=== PATIENT | female | born 1965 | race African-American/Black ===

== ENCOUNTER 2022-11-07 00:22 | Emergency (ER) | payer BC, SELFPAY ==
[2022-11-07 00:35] VITALS: BP 130/97; PULSE 82; RESP 16; TEMP 36.4; O2SAT 100; BMI 40.0
[2022-11-07 00:47] LABS: Glucometer 222 mg/dL (74-106)
[2022-11-07 01:30] LABS: Bilirubin Urine NEGATIVE (NEGATIVE); Blood Urine MODERATE (NEGATIVE); Clarity Urine SL CLOUDY (CLEAR); Color Urine YELLOW (YELLOW); Glucose Urine UA NEGATIVE (NEGATIVE); Ketones Urine TRACE mg/dL (NEGATIVE); Leukocyte Esterase Urine SMALL (NEGATIVE); Nitrite Urine NEGATIVE (NEGATIVE); Protein Urine >=300 mg/dL (NEG/TRACE); Specific Gravity Urine >=1.030 (1.005-1.025); Urobilinogen Urine 0.2 EU/dL (0.2-1.0)
[2022-11-07 01:31] LABS: Urine Microscopic Indicated YES
[2022-11-07 01:53] LABS: Bacteria Urine SMALL #/HPF (NONE SEEN); Mucus Urine NONE SEEN (NONE SEEN); RBC Urine 20-50 #/HPF (0-2)
[2022-11-07 01:54] LABS: Calcium Oxalate Crystals Urine FEW; Cast Seen? NONE SEEN #/LPF (NONE SEEN); Crystals Seen? Seen #/HPF (None Seen); Squamous Epithelial Cell Urine MODERATE #/LPF (NONE/RARE)
[2022-11-07 01:55] LABS: Urine Culture Indicated YES
--- NOTE | 2022-11-07 05:55 | ECG_ITS ---
[facility] Test Date: 2022-11-07 Pat Name: Queen Arthur Department: Room: - Gender: Female [employer]ile [employer]ist: : [id number] Requested By: [id number] Order Number: [id number] Reading MD: MILAGROS CALVO Measurements Intervals [place] Rate: 91 P: 49 NC: 144 QRS: 38 QRSD: 76 T: -6 QT: 356 QTc: 404 Interpretive Statements 1100 Sinus rhythm T wave in version III, aVF - possible inf wall ischmia 9130 borderline ECG No previous ECG available for comparison Electronically Signed On 11-07-2022 7:18:14 EDT by MILAGROS CALVO
== END 2022-11-07 06:54 | disposition left against medical advice (07) ==
PROVIDERS: Emergency Provider Internal Medicine; PCP Nurse Practitioner
DX: E11.65 Type 2 diabetes mellitus with hyperglycemia (principal)
CPT/HCPCS: 36415; 81003; 81015; 87086; 93005; 99281; 99284

== ENCOUNTER 2023-04-14 09:31 | Outpatient (OUT) | payer BC, SELFPAY ==
[2023-04-14 10:42] LABS: Estimated Average Glucose 174 mg/dL; Glycohemoglobin A1C 7.7 % (4.5-6.2)
== END 2023-04-14 09:32 | disposition home or self-care (01) ==
LOC: LAB 09:34
PROVIDERS: PCP Family Medicine; Visit Provider Family Medicine
DX: E11.65 Type 2 diabetes mellitus with hyperglycemia (principal)
CPT/HCPCS: 36415; 83036

== ENCOUNTER 2024-03-24 11:10 | Outpatient (OUT) | payer BC, SELFPAY ==
--- OUTSIDE RECORDS SUMMARY | 2024-03-24 11:21 | XMS_ITS | CCD ---
Author Organization [facility] Care Team Providers Care Wine Steward/Stewardess Name Role Phone ROSARIOALEKSEY GILMORE [place] Referring Unavailable PARIS BOYKIN Primary Care Unavailable Damon Og Attending Physician Unavailable Paris Boykin Primary Care Physician Danial Trinidad MD, Shi Primary Care Provider [phone] Shi Trinidad MD Primary Care Provider SOTERO, DR BOO Solorzano Primary Care Unavailable NADEREKishore, DR BOO Solorzano Attending Unavailable NADERER, DR BOO Solorzano Admitting Unavailable ZIEBER, DR LONG Novak Consulting Unavailable NADERER, DR BOO Solorzano Consulting Unavailable NADERER, DR BOO Solorzano Primary Care Unavailable AICHHOLZ, BOOTH OPERATOR MELINDA Admitting Unavailable AICHHOLZ, BOOTH OPERATOR MELINDA Consulting Unavailable AICHHOLZ, BOOTH OPERATOR MELINDA Attending Unavailable BENNIE CHAMBERS Consulting Unavailable NADERER, DR BOO Solorzano Consulting Unavailable NADERER, DR BOO Solorzano Attending Unavailable NADERER, DR BOO Solorzano Admitting Unavailable LUCIO SOMERS Consulting Unavailable NORIS MEDINA Consulting Unavailable Melinda Gann PA-C Primary Care Provider Shi Trinidad MD Primary Care Provider Boo Bey MD Primary Care Provider Unavailable Unavailable Unavailable Medications Current Medications Medication Drug Class(es) Dates Sig (Normalized) Sig (Original) atorvastatin 40 mg oral tablet (5 sources) HMG-CoA Reductase Inhibitor take 1 tablet by mouth in the morning atorvastatin (Lipitor) 40 MG tablet Take 40 mg by mouth in the morning. Active Blood Glucose Monitoring Suppl (True Metrix Air Glucose Meter) w/Device kit (5 sources) Blood Glucose Monitoring Suppl (True Metrix Air Glucose Meter) w/Device kit Active Blood Glucose Mo nitoring Suppl (True Metrix Air Glucose Meter) w/Device kit celecoxib 200 mg oral capsule (5 sources) Nonsteroidal Anti-inflammatory Drug take 1 capsule by mouth in the morning celecoxib (CeleBREX) 200 MG capsule Take 200 mg by mouth in the morning and 200 mg before bedtime. Active lisinopril 30 mg oral tablet (5 sources) Angiotensin Converting Enzyme Inhibitor Start: 10-14-19 End: 10-14-19 take 1 tablet by mouth once daily lisinopril 30 MG tablet Indications: Benign hypertension (CMS/HCC) Take 1 tablet (30 mg) by mouth Daily 30 tablet 11 10/14/2023 10/13/2024 Active take 1 tablet by mouth in the mo rning lisinopril 30 MG tablet Take 30 mg by mouth in the morning. 0 Active 24 hr metFORMIN hydrochloride 500 mg extended release oral tablet (7 sources) Biguanide Start: 03-02-2024 take 1 tablet by mouth once daily metFORMIN XR (Glucophage-XR) 500 MG 24 hr tablet Take 500 mg by mouth Daily 03/02/2024 Active Start: 10-14-2023 End: 10-13-2024 take 1 tablet by mouth at mealtime metFORMIN (Glucophage) 500 MG tablet Indications: Type 2 diabetes mellitus with hyperglycemia, without long-term current use of insulin (CMS/HCC) Take 1 tablet (500 mg) by mouth in the morning. Take with meals. 30 tablet 11 10/14/2023 03/21/2024 Discontinued take 1 tablet by hilaria th once daily metFORMIN (Glucophage) 500 MG tablet Take 500 mg by mouth 1 (one) time each day 0 Active ondansetron 4 mg disintegrating oral tablet (5 sources) Serotonin-3 Receptor Antagonist Start: 05-17-2023 take 1 tablet by mouth every six hours as needed for nausea and vomiting and nausea and nausea ondansetron ODT (Zofran-ODT) 4 MG disintegrating tablet Indications: Nausea Take 1 tablet (4 mg) by mouth every 6 (six) hours if needed for nausea or vomiting 20 tablet 1 05/17/2023 Active 1 mg dose 1.5 ml semaglutide 1.34 mg/ml pen injector (2 sources) Start: 03-21-2024 inject 1 mg by subcutaneous injection every week semaglutide (Ozempic) 2 MG/1.5ML solution pen-injector Indications: Type 2 diabetes mellitus with hyperglycemia, without long-term current use of insulin (CMS/[facility]) Inject 1 mg under the skin 1 (one) time per week 2 each 5 03/21/2024 Active traMADol hydrochloride 50 mg oral tablet (6 sources) Opioid Agonist Start: 03-15-2024 End: 03-22-2024 take 1 tablet by mouth four times daily as needed for pain traMADol (Ultram) 50 MG tablet Indications: Chronic pain of right ankle Take 1 tablet (50 mg) by mouth 4 (four) times a day as needed for severe pain for up to 7 days 28 tablet 03/15/2024 03/22/2024 Active Start: 07-07-2023 End: 07-14-2023 take 1 tablet by mouth four times daily as needed for pain traMADol (Ultram) 50 MG tablet Indications: Arthritis of ankle Take 1 tablet (50 mg) by mouth 4 (four) times a day as needed for severe pain for up to 7 days 28 tablet 0 07/07/2023 07/14/2023 Active Start: 01-11-2023 End: 07-07-2023 take 1 tablet by mouth every six hours as needed for pain traMADol (Ultram) 50 MG tablet Take 50 mg by mouth every 6 (six) hours if needed for severe pain 0 01/11/2023 07/07/2023 Discontinued (Reorder) Completed/Discontinued Medications Medication Drug Class(es) Dates Sig (Normalized) Sig (Original) glipiZIDE er 10 mg 24 hr extended release oral tablet (7 sources) Sulfonylurea Start: 10-14-2023 End: 10-13-2024 take 1 tablet by mouth once daily glipiZIDE XL (Glucotrol XL) 10 MG 24 hr tablet Indications: Type 2 diabetes mellitus with hyperglycemia, without long-term current use of insulin (CMS/[facility]) Take 1 tablet (10 mg) by mouth Daily Do not crush, chew, or split. 30 tablet 11 10/14/2023 03/21/2024 Discontinued Start: 05-11-2023 take 1 tablet by hilaria th once daily glipiZIDE (Glucotrol) 10 MG tablet Take 10 mg by mouth Daily 05/11/2023 Active take 1 tablet by hilaria th every twenty-four hours in the morning glipiZIDE XL (Glucotrol XL) 10 MG 24 hr tablet Take 10 mg by mouth in the morning. Do not crush, chew, or split.. 0 Active hydroCHLOROthiazide 25 mg oral tablet (3 sources) Thiazide Diuretic Start: 12-11-2020 take 1 tablet by mouth once daily hydroCHLOROthiazide (HYDRODIURIL, ESIDRIX) 25 mg tablet Take 1 tablet by mouth once daily. 30 tablet 11 12/11/2020 Active Comment on above: Take 1 tablet by once daily. Semaglutide,0.25 or 0.5MG/DOS, (Ozempic, 0.25 or 0.5 MG/DOSE,) 2 MG/3ML solution pen-injector (5 sources) Start: 10-14-2023 End: 03-21-2024 Semaglutide,0.25 or 0.5MG/DOS, (Ozempic, 0.25 or 0.5 MG/DOSE,) 2 MG/3ML solution pen-injector Indications: Type 2 diabetes mellitus with hyperglycemia, without long-term current use of insulin (CMS/HCC) Inject 0.5 mg under the skin 1 (one) time per week 3 mL 5 10/14/2023 03/21/2024 Discontinued Start: 10-14-2023 Semaglutide,0. 25 or 0.5MG/DOS, (Ozempic, 0.25 or 0.5 MG/DOSE,) 2 MG/3ML solution pen-injector Indications: Type 2 diabetes mellitus with hyperglycemia, without long-term current use of insulin (CMS/HCC) Inject 0.5 mg under the skin 1 (one) time per week 3 mL 5 10/14/2023 Active Semaglutide,0.25 or 0.5MG/DOS, (Ozempic, 0.25 or 0.5 MG/DOSE,) 2 MG/3ML solution pen-injector Inject under the skin 1 (one) time per week 0 Active Surgical Lubricant Jelly gel (3 sources) Start: 02-18-2021 Surgical Lubri cant Jelly gel For MRI Female Pelvis, MRI department to provide. Administer intra-vaginal Surgilube immediately prior the MRI procedure (total amount to patient toleranace). 5 g 0 02/18/2021 Active Comment on above: For MRI Female Pelvi s, MRI department to provide. Administer intra-vaginal Surgilube immediately prior the MRI procedure (total amount to patient toleranace). Problems Active Problems Problem Classification Problem Date Documented Da te Episodic/Chronic Diabetes mellitus with complications (8 sources) Hyperglycemia due to type 2 diabetes mellitus; Translations: [Type 2 diabetes mellitus with hyperglycemia] Onset: 03-15-2024 03-15-2024 Chronic Disorders of lipid metabolism (6 sources) Dyslipidemia; Translations: [Hyperlipidemia, unspecified] Onset: 03-15-2024 03-15-2024 Chronic Essential hypertension (12 sources) Essential hypertension; Translations: [Essential (primary) hypertension] Onset: 12-12-2019 12-12-2019 Chronic Joint disorders and dislocations; trauma-related (1 source) Unspecified internal derangement of left knee; Translations: [Unspecified internal derangement of left knee] Onset: 09-16-2018 Chronic Nonspecific chest pain (4 sources) Chest pain, unspecified; Translations: [CHEST PAIN UNSPECIFIED] Onset: 10-20-2022 Episodic Osteoarthritis (6 sources) Bilateral primary osteoarthritis of knee; Translations: [Disorder of ankle joint] Onset: 10-17-2022 07-07-2023 Chronic Other gastrointestinal disorders (1 source) Mass of left lower quadrant of abdomen; Translations: [Left lower quadrant abdominal swelling, mass and lump] 12-06-2020 Episodic Other liver diseases (3 sources) Steatosis of liver; Translations: [Fatty (change of) liver, not elsewhere classified] Onset: 12-11-2020 12-11-2020 Chronic Other non-traumatic joint disorders (1 source) Pain in left knee; Translations: [Pain in left knee] Onset: 09-16-2018 Episodic Other non-traumatic joint disorders (1 source) Pain in right ankle and joints of right foot; Translations: [PAIN IN RIGHT ANKLE] Onset: 10-17-2022 Episodic Other non-traumatic joint disorders (1 source) Hip pain; Translations: [Pain in left hip] 11-12-2020 Episodic Other non-traumatic joint disorders (7 sources) Chronic ankle pain; Translations: [Pain in right ankle and joints of right foot] Onset: 03-15-2024 03-15-2024 Episodic Other nutritional; endocrine; and metabolic disorders (2 sources) Morbid obesity; Translations: [Morbid (severe) obesity due to excess calories] Onset: 03-15-2024 03-15-2024 Chronic Other nutritional; endocrine; and metabolic disorders (4 sources) Severe obesity; Translations: [Class 3 severe obesity due to excess calories with serious comorbidity and body mass index (BMI) of 40.0 to 44.9 in adult ([facility])] Onset: 03-15-2024 03-21-2024 Chronic Other screening for suspected conditions (not mental disorders or infectious disease) (14 sources) Patient encounter status; Translations: [Encounter for screening for malignant neoplasm of colon] Onset: 03-11-2018 01-09-2021 Episodic Peripheral and visceral atherosclerosis (3 sources) Atherosclerosis of artery ; Translations: [Unspecified atherosclerosis] Onset: 12-11-2020 12-11-2020 Chronic Residual codes; unclassified (1 source) Family history of malignant neoplasm of breast; Translations: [FAMILY HX MALIG NEOPLASM OF BREAST] Onset: 10-22-2022 Episodic Residual codes; unclassified (1 source) Family history of malignant neoplasm of other organs or systems; Translations: [FAM HX MALIG NEOPLASM OTH ORGN/SYS] Onset: 10-22-2022 Episodic Sprains and strains (1 source) Sprain of unspecified site of left knee, sequela; Translations: [Sprain of unspecified site of left knee, sequela] Onset: 09-16-2018 Episodic Past or Other Problems Problem Classification Problem Date Documented Da te Episodic/Chronic Other and unspecified benign neoplasm (3 sources) Leiomyoma; Translations: [Benign neoplasm of connective and other soft tissue, unspecified] Onset: 12-11-2020 12-11-2020 Episodic Other gastrointestinal disorders (3 sources) Stool DNA-based colorectal cancer screening positive; Translations: [Other fecal abnormalities] Onset: 01-09-2021 01-09-2021 Episodic Results Test Name Value Interpretation Reference Range Facility MG MAMM SCREEN 3D KADIE CADon 10-21-2022 MG MAMM SCREEN 3D KADIE CAD Patient: QUEEN Magdalena GIBSON Exam Date: 10/21/2022 : 1965 Gender:F Ordering : DR BOO BEY . Admission #: [id number] Family : Order #: [id number] CLICK HERE TO VIEW EXAM RADIOLOGY REPORT PROCEDURE: MAMMOGRAM SCREENING 3D BILATERAL CAD COMPARISON: MG MAMM SCREEN KADIE W CAD, 06/19/2010. INDICATIONS: Screening mammography Calculator Name NCI Breast Cancer Risk Assessment Tool 5 Year Breast Cancer Risk 1.40% Lifetime Breast Cancer Risk 7.80% Personal Breast Cancer No Personal Ovarian Cancer No Treatments None Family Cancers Grandmother-paternal with breast cancer at age 60; Father with brain cancer at age 55. LOCATION: [facility] BREAST COMPOSITION: Heterogeneously dense,which may obscure small masses. FINDINGS: DIAGNOSTIC CATEGORY 1--NEGATIVE. RIGHT BREAST: No significant suspicious finding. No significant change has occurred. LEFT BREAST: No significant suspicious finding. No significant change has occurred. RECOMMENDATIONS: ROUTINE MAMMOGRAM AND CLINICAL EVALUATION IN 12 MONTHS. PLEASE NOTE: A NORMAL MAMMOGRAM DOES NOT EXCLUDE THE POSSIBILITY OF BREAST CANCER. A CLINICALLY SUSPICIOUS PALPABLE LUMP SHOULD BE BIOPSIED. Dictated by: Long Ge M.D. on 10/21/2022 at 15:04 Approved by: Long Ge M.D. on 10/21/2022 at 15:06 Normal [facility] XR CHEST 2 Von 10-20-2022 XR CHEST 2 V EXAM: XR CHEST 2 V HISTORY: Chest pain COMPARISON: None. TECHNIQUE: PA and lateral views of the chest. FINDINGS: The cardiomediastinal silhouette is normal. No focal consolidation is identified. There is no pneumothorax. No pleural effusion is noted. The osseous structures are intact. IMPRESSION: No acute cardiopulmonary process. Electronically authenticated by: BENNIE CHAMBERS Date: 2022-10-20 11:06 Normal [facility] XR KNEE KADIE 3 Von 10-15-2022 XR KNEE KADIE 3 V EXAM: XR KNEE KADIE 3 V HISTORY: Idiopathic osteoarthritis COMPARISON: None. TECHNIQUE: Two views of the right knee and 2 views of the left knee were obtained. FINDINGS: There is severe narrowing of the bilateral medial compartments. Marginal tricompartmental spurring is seen along with spurring of the tibial spines. There is bilateral small joint effusions. Enthesopathic changes are seen at the insertion of the quadriceps tendon bilaterally. IMPRESSION: Severe bilateral knee joint osteoarthritis. Enthesopathic changes at the insertion of the quadriceps tendon. Electronically authenticated by: LUCIO SOMERS Date: 2022-10-15 21:16 Normal [facility] CBC AUTO DIFFon 10-14-2022 BASO # 0.1 103/ul Normal 0.0-0.1 [facility] Comment on above: Performed By: #### C BC #### [facility] [address] [place] [address] Dr. Marguerite Lynn Basophils/100 WBC (Bld) 1.1 % Normal 0.2-2.0 [facility] Comment on above: Performed By: #### C BC #### [facility] [address] [place] [address] Dr. Marguerite Lynn EO # 0.1 103/ul Normal 0.0-0.7 [facility] Comment on above: Performed By: #### C BC #### [facility] [address] [place] [address] Dr. Marguerite Lynn Eosinophils/100 WBC (Bld) 2.2 % Normal 0.9-7.0 [facility] Comment on above: Performed By: #### C BC #### [facility] [address] [place] [address] Dr. Marguerite Lynn Erythrocyte distribution width (RBC) [Ratio] 14.6 % Normal 11.0-15.0 [facility] Comment on above: Performed By: #### C BC #### [facility] [address] [place] [address] Dr. Marguerite Lynn Hematocrit (Bld) [Volume fraction] 39.8 % Normal 36.0-48.0 [facility] Comment on above: Performed By: #### C BC #### [facility] [address] [place] [address] Dr. Marguerite Lynn Hemoglobin (Bld) [Mass/Vol] 12.5 g/dL Normal 12.0-16.0 [facility] Comment on above: Performed By: #### C BC #### [facility] [address] [place] [address] Dr. Marguerite Lynn IG # 0.02 10e3/ul Normal 0.00-0.03 [facility] Comment on above: Performed By: #### C BC #### [facility] [address] [place] [address] Dr. Marguerite yLnn IG % 0.4 % Normal 0.0-0.5 [facility] Comment on above: Performed By: #### C BC #### [facility] [address] [place] [address] Dr. Marguerite Lynn LYMPH # 1.8 103/ul Normal 1.2-3.8 [facility] Comment on above: Performed By: #### C BC #### [facility] [address] [place] [address] Dr. Marguerite Lynn Lymphocytes/100 WBC (Bld) 33.5 % Normal 20.5-60.0 [facility] Comment on above: Performed By: #### C BC #### [facility] [address] [place] [address] Dr. Marguerite Lynn MANUAL DIFF REQ NO Normal [facility] Comment on above: Performed By: #### C BC #### [facility] [address] [place] [address] Dr. Marguerite Lynn MCH (RBC) [Entitic mass] 28.3 pg Normal 26.7-34.0 [facility] Comment on above: Performed By: #### C BC #### [facility] [address] [place] [address] Dr. Marguerite Lynn MCHC (RBC) [Mass/Vol] 31.4 g/dL Normal 29.9-35.2 [facility] Comment on above: Performed By: #### C BC #### [facility] [address] [place] [address] Dr. Marguerite Lynn MCV (RBC) [Entitic vol] 90.2 fL Normal 81.0-99.0 [facility] Comment on above: Performed By: #### C BC #### [facility] [address] [place] [address] Dr. Marguerite Lynn MONO # 0.5 103/ul Normal 0.3-0.8 [facility] Comment on above: Performed By: #### C BC #### [facility] [address] [place] [address] Dr. Marguerite Lynn Monocytes/100 WBC (Bld) 8.3 % Normal 1.7-12.0 [facility] Comment on above: Performed By: #### C BC #### [facility] [address] [address] [address] Marguerite Lynn NEUT # 2.9 103/ul Normal 1.4-6.5 [facility] Comment on above: Performed By: #### C BC #### [facility] [address] [address] [address] Marguerite Lynn Neutrophils/100 WBC (Bld) 54.5 % Normal 43.0-75.0 [facility] Comment on above: Performed By: #### C BC #### [facility] [address] [address] [address] Marguerite Lynn Platelet mean volume (Bld) [Entitic vol] 10.8 fL Normal 9.5-13.5 [facility] Comment on above: Performed By: #### C BC #### [facility] [address] [place] [address] Dr. Marguerite Lynn PLT 247 103/ul Normal 150-450 [facility] Comment on above: Performed By: #### C BC #### [facility] [address] [place] [address] Dr. Marguerite Lynn RBC 4.41 106/ul Normal 4.20-5.40 [facility] Comment on above: Performed By: #### C BC #### [facility] [address] [place] [address] Dr. Marguerite Lynn WBC 5.4 103/ul Normal 4.0-11.0 [facility] Comment on above: Performed By: #### C BC #### [facility] [address] [place] [address] Dr. Marguerite Lynn GLYCOHEMOGLOBIN A1Con 2022 ADA RECOMMENDATION SEE BELOW Normal [facility] Comment on above: Result Comment: ADA RECOMMENDED LIMIT 4.0 - 6.0 ADA THERAPEUTIC TARGET < 7.0 ACTION SUGGESTED > 7.0 Performed By: #### A 1C #### [facility] [address] [place] [address] Dr. Marguerite Lynn Glucose [Mass/Vol] 298 mg/dL Normal [facility] Comment on above: Performed By: #### A 1C #### [facility] [address] [address] [address] Marguerite Lynn HbA1c (Bld) [Mass fraction] 12.0 % Critically high 4.5-6.2 [facility] Comment on above: Performed By: #### A 1C #### [facility] [address] [address] [address] Marguerite Lynn LIPID PROFILEon 10-14-2022 CHOL-HDL RATIO NORM SEE BELOW Normal [facility] Comment on above: Result Comment: 3.3 - 4.4 LOW RISK 4.4 - 7.1 AVERAGE RISK 7.1 - 11.0 MODERATE RISK >11.0 HIGH RISK Performed By: #### B MP, TSH, LIPID, URIC, LIVER #### [facility] [address] [address] [address] Marguerite Lynn Cholesterol [Mass/Vol] 282 mg/dL Critically high <=200 [facility] Comment on above: Performed By: #### B MP, TSH, LIPID, URIC, LIVER #### [facility] [address] [address] [address] Marguerite Lynn Cholesterol in HDL [Mass/Vol] 62 mg/dL Critically high 40-60 [facility] Comment on above: Performed By: #### B MP, TSH, LIPID, URIC, LIVER #### [facility] [address] [address] [address] Marguerite Lynn Cholesterol in LDL [Mass/Vol] 182.0 mg/dL Normal [facility] Comment on above: Performed By: #### B MP, TSH, LIPID, URIC, LIVER #### [facility] [address] [address] [address] Marguerite Lynn Cholesterol.total/C holesterol in HDL [Mass ratio] 4.5 {ratio} Normal [facility] Comment on above: Performed By: #### B MP, TSH, LIPID, URIC, LIVER #### [facility] [address] [address] [address] Marguerite Lynn HDL NORMAL > or = 60 mg/dl - LO W CARDIOVASCULAR RISK <40 mg/dl - HIGH CARDIOVASCULAR RISK Normal [facility] Comment on above: Performed By: #### B MP, TSH, LIPID, URIC, LIVER #### [facility] [address] [place] [address] Dr. Marguerite Lynn LDL CALC NORMAL SEE BELOW Normal [facility] Comment on above: Result Comment: <100 mg/dl OPTIMAL 100 - 129 mg/dl NEAR OR ABOVE OPTIMAL 130 - 159 mg/dl BORDERLINE HIGH 160 - 189 mg/dl HIGH >190 mg/dl VERY HIGH Performed By: #### B MP, TSH, LIPID, URIC, LIVER #### [facility] [address] [address] [address] Marguerite Lynn Triglyceride [Mass/Vol] 190 mg/dL Critically high <=150 [facility] Comment on above: Performed By: #### B MP, TSH, LIPID, URIC, LIVER #### [facility] [address] [place] [address] Dr. Marguerite Lynn VLDL CALC 38.0 mg/dL Normal [facility] Comment on above: Performed By: #### B MP, TSH, LIPID, URIC, LIVER #### [facility] [address] [place] [address] Dr. Marguerite Lynn LIVER PROFILEon 10-14-2022 Albumin [Mass/Vol] 3.6 g/dL Normal 3.4-5.0 [facility] Comment on above: Performed By: #### B MP, TSH, LIPID, URIC, LIVER #### [facility] [address] [place] [address] Dr. Marguerite Lynn Albumin/Globulin [Mass ratio] 0.8 {ratio} Normal [facility] Comment on above: Performed By: #### B MP, TSH, LIPID, URIC, LIVER #### [facility] [address] [place] [address] Dr. Marguerite Lynn ALP [Catalytic activity/Vol] 215 U/L Critically high 46-116 [facility] Comment on above: Performed By: #### B MP, TSH, LIPID, URIC, LIVER #### [facility] [address] [place] [address] Dr. Marguerite Lynn ALT [Catalytic activity/Vol] 23 U/L Normal 14-59 [facility] Comment on above: Performed By: #### B MP, TSH, LIPID, URIC, LIVER #### [facility] [address] [place] [address] Dr. Marguerite Lynn AST [Catalytic activity/Vol] 10 U/L Critically low 15-37 [facility] Comment on above: Performed By: #### B MP, TSH, LIPID, URIC, LIVER #### [facility] [address] [place] [address] Dr. Marguerite Lynn BILI, CONJUGATED <0.1 Normal 0.0-0.2 [facility] Comment on above: Performed By: #### B MP, TSH, LIPID, URIC, LIVER #### [facility] [address] [place] [address] Dr. Marguerite Lynn Bilirubin [Mass/Vol] 0.2 mg/dL Normal 0.2-1.0 [facility] Comment on above: Performed By: #### B MP, TSH, LIPID, URIC, LIVER #### [facility] [address] [place] [address] Dr. Marguerite Lynn Globulin (S) [Mass/Vol] 4.3 g/dL Normal [facility] Comment on above: Performed By: #### B MP, TSH, LIPID, URIC, LIVER #### [facility] [address] [place] [address] Dr. Marguerite Lynn Protein [Mass/Vol] 7.9 g/dL Normal 6.4-8.2 [facility] Comment on above: Performed By: #### B MP, TSH, LIPID, URIC, LIVER #### [facility] [address] [place] [address] Dr. Marguerite Lynn PROF CHEM 8 (BAS METB)on Anion gap [Moles/Vol] 12.8 mmol/L Normal [facility] Comment on above: Performed By: #### B MP, TSH, LIPID, URIC, LIVER #### [facility] [address] [place] [address] Dr. Marguerite Lynn Calcium [Mass/Vol] 9.2 mg/dL Normal 8.5-10.1 [facility] Comment on above: Performed By: #### B MP, TSH, LIPID, URIC, LIVER #### [facility] [address] [place] [address] Dr. Marguerite Lynn Chloride [Moles/Vol] 102 mmol/L Normal 98-107 [facility] Comment on above: Performed By: #### B MP, TSH, LIPID, URIC, LIVER #### [facility] [address] [place] [address] Dr. Marguerite Lynn CO2 [Moles/Vol] 30.2 mmol/L Normal 21.0-32.0 [facility] Comment on above: Performed By: #### B MP, TSH, LIPID, URIC, LIVER #### [facility] [address] [place] [address] Dr. Marguerite Lynn Creatinine [Mass/Vol] 1.00 mg/dL Normal 0.55-1.02 [facility] Comment on above: Performed By: #### B MP, TSH, LIPID, URIC, LIVER #### [facility] [address] [place] [address] Dr. Marguerite Lynn EGFR-AF GABONESE >60 Normal >=60 [facility] Comment on above: Performed By: #### B MP, TSH, LIPID, URIC, LIVER #### [facility] [address] [place] [address] Dr. Marguerite Lynn EGFR-NON AF GABONESE 58 mL/min/1.73m2 Critically low >=60 [facility] Comment on above: Performed By: #### B MP, TSH, LIPID, URIC, LIVER #### [facility] [address] [place] [address] Dr. Marguerite Lynn Glucose [Mass/Vol] 330 mg/dL Critically high 74-[address] [facility] Comment on above: Performed By: #### B MP, TSH, LIPID, URIC, LIVER #### [facility] [address] [place] [address] Dr. Marguerite Lynn Potassium [Moles/Vol] 4.0 mmol/L Normal 3.5-5.1 [facility] Comment on above: Performed By: #### B MP, TSH, LIPID, URIC, LIVER #### [facility] [address] [place] [address] Dr. Marguerite Lynn Sodium [Moles/Vol] 141 mmol/L Normal 136-145 [facility] Comment on above: Performed By: #### B MP, TSH, LIPID, URIC, LIVER #### [facility] [address] [place] [address] Dr. Marguerite Lynn Urea nitrogen [Mass/Vol] 14.0 mg/dL Normal 7.0-18.0 [facility] Comment on above: Performed By: #### B MP, TSH, LIPID, URIC, LIVER #### [facility] [address] [place] [address] Dr. Marguerite Lynn Urea nitrogen/Creatinine [Mass ratio] 14.0 mg/mg Normal [facility] Comment on above: Performed By: #### B MP, TSH, LIPID, URIC, LIVER #### [facility] [address] [place] [address] Dr. Marguerite Lynn TSHon 10-14-2022 TSH 1.140 uIU/mL Normal 0.358-3.740 [facility]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 [facility] Erythrocyte distribution width (RBC) [Ratio] 14.9 % 11.9-15.3 [facility] Estimated GFR (Non- > 60 [facility] GFR/1.73 sq M.predicted MDRD (S/P/Bld) [Vol rate/Area] mL/min/{1.73_m2} [facility] Comment on above: GFR estimated refere nce range: According to KDOQI guidelines, <60 ml/min/1.73m2 is sufficient to diagnose a patient with chronic kidney disease. Hematocrit (Bld) [Volume fraction] 39.1 % 34.0-46.4 [facility] Hemoglobin (Bld) [Mass/Vol] 13.1 g/dL 11.8-15.4 [facility] Lymphocytes (Bld) [#/Vol] 2.1 10*3/uL 1.00-4.8 [facility] Lymphocytes/100 WBC (Bld) 36.0 % [facility] MCH (RBC) [Entitic mass] 29.5 pg 24.7-34.3 [facility] MCHC (RBC) [Mass/Vol] 33.5 g/dL 32.0-35.0 [facility] MCV (RBC) [Entitic vol] 88.1 fL 80-100 [facility] Monocytes (Bld) [#/Vol] 0.6 10*3/uL 0.0-0.8 [facility] Monocytes/100 WBC (Bld) 10.0 % [facility] Neutrophils (Bld) [#/Vol] 3.0 10*3/uL 1.8-7.7 [facility] Neutrophils/100 WBC (Bld) 51.8 % [facility] Platelet mean volume (Bld) [Entitic vol] 8.8 fL 6.3-10.7 [facility] Platelets (Bld) [#/Vol] 240 10*3/uL 150-450 [facility] Potassium [Moles/Vol] 3.9 mmol/L 3.5-5.1 [facility] RBC (Bld) [#/Vol] 4.43 10*6/uL 3.60-5.00 [facility] Sodium [Moles/Vol] 138 mmol/L 136-146 [facility] Urea nitrogen [Mass/Vol] 10 mg/dL 9-23 [facility] WBC (Bld) [#/Vol] 5.7 10*3/uL 3.8-11.6 [facility] Vital Signs Date Time Vital Sign Value Performing Clinician Facility 03-21-2024 13:56-0400 Body height 162.6 cm Boo Bey MD Work Phone: [facility] 03-21-2024 13:56-0400 Body mass index (BMI) [Ratio] 40.1 kg/m2 Boo Bey MD Work Phone: [facility] 03-21-2024 13:56-0400 Body temperature 97.3 [degF] Boo Bey MD Work Phone: [facility] 03-21-2024 13:56-0400 Body weight 105.96 kg Boo Bey MD Work Phone: [facility] 03-21-2024 13:56-0400 Diastolic blood pressure 100 mm[Hg] Boo Bey MD Work Phone: [facility] 03-21-2024 13:56-0400 Heart rate 100 /min Boo Bey MD Work Phone: [facility] 03-21-2024 13:56-0400 SaO2% (BldA) [Mass fraction] 100 % Boo Bey MD Work Phone: [facility] 03-21-2024 13:56-0400 Systolic blood pressure 160 mm[Hg] Boo Bey MD Work Phone: [facility] NEGATED: Highlighted row BMI (Body Mass Index) [facility] NEGATED: Highlighted row Body Temperature [facility] NEGATED: Highlighted row Body weight [facility] NEGATED: Highlighted row BP Diastolic [facility] NEGATED: Highlighted row BP Systolic [facility] NEGATED: Highlighted row Height [facility] NEGATED: Highlighted row Pulse (Heart Rate) [facility] NEGATED: Highlighted row Pulse Oximetry [facility] NEGATED: Highlighted row Respiratory Rate [facility] Encounters Encounter Date Encounter Type Care Provider Facility Start: 03-21-2024 End: 03-21-2024 Bambo flowsheet Boo Bey MD Work Phone: [facility] Start: 03-21-2024 End: 03-21-2024 [facility] flowsheet Boo Bey MD Work Phone: [facility] Start: 03-21-2024 End: 03-21-2024 Office outpatient visit 25 minutes Boo Bey MD Work Phone: [facility] Comment on above: Type 2 diabetes rafaela itus with hyperglycemia, without long-term current use of insulin ([facility]) (Primary Dx); Hypertension, essential (CMS/[facility]); Bilateral primary osteoarthritis of knee; Chronic pain of right ankle; Dyslipidemia (CMS/HCC); Class 3 severe obesity due to excess calories with serious comorbidity and body mass index (BMI) of 40.0 to 44.9 in adult (CMS/HCC); Breast cancer screening by mammogram; Annual physical exam; Type 2 diabetes mellitus with other specified complication ([facility]/HCC) Start: 03-21-2024 End: 03-21-2024 Patient encounter procedure Boo Bey MD Work Phone: [facility] Start: 03-15-2024 End: 03-15-2024 Orders Only Boo Bey MD Work Phone: [facility] Comment on above: Chronic pain of righ t ankle (Primary Dx) Start: 07-07-2023 Refill Boo Whitmore Work Phone: [facility] Comment on above: Arthritis of ankle ( Primary Dx) Start: 02-10-2023 ambulatory Shi Trinidad MD Work Phone: [facility] [place] Start: 10-21-2022 End: 10-22-[address] BOO BEY Facility:[facility] Start: 10-20-2022 End: 10-21-[address] BOO BEY Facility:[facility] Start: 10-17-2022 Encounter for genera l adult medical examination without abnormal findings DR BOO BEY [facility] Start: 10-14-2022 End: 10-15-[address] BOO BEY Facility:[facility] Start: 10-14-2022 End: 10-15-2022 Encounter for general adult medical examination without abnormal findings DR BOO BEY Facility:[facility] Start: 03-04-2022 ambulatory Shi Trinidad MD Work Phone: Internal Medicine [facility] Start: 01-08-2022 Telephone encounter Shi Mcclain i, MD Work Phone: [facility] [place] Comment on above: ER F/U Start: 12-06-2020 End: 12-06-2020 Subsequent hospital visit by physician Ct Prep Pending Sale To [facility] Comment on above: Left lower quadrant abdominal mass [R19.04] Start: 11-12-2020 End: 11-12-2020 Subsequent hospital visit by physician Xr Pending Sale To [facility] Comment on above: Left hip pain [M25.5 52] Start: 12-21-2018 End: 12-21-2018 Discharged Recurring [facility] Start: 09-16-2018 End: 09-19-2018 [facility] Start: 08-30-2017 End: 08-30-2017 Departed Referred [facility] Start: 10-21-2016 End: 10-22-2016 Discharged Recurring [facility] Start: 09-24-2016 End: 09-24-2016 [facility] Start: 09-17-2016 End: 09-17-2016 Patient encounter procedure [facility] Start: 04-20-2014 End: 04-20-2014 Patient encounter procedure [facility] Start: 09-27-2013 End: 09-27-2013 Patient encounter procedure [facility] Start: 09-20-2013 End: 09-20-2013 Patient encounter procedure [facility] Start: 01-23-2013 End: 01-23-2013 Patient encounter procedure [facility] Start: 01-17-2013 End: 01-17-2013 Patient encounter procedure Damon [facility] Start: 10-09-2011 End: 10-09-2011 Patient encounter procedure [facility] Start: 11-20-2010 End: 11-20-2010 Patient encounter procedure [facility] Start: 06-19-2010 End: 06-19-2010 Patient encounter procedure [facility] Start: 08-15-2007 End: 08-15-2007 Patient encounter procedure [facility] Start: 07-02-2006 End: 07-02-2006 Patient encounter procedure [facility] Start: 08-03-2005 End: 08-03-2005 Patient encounter procedure [facility] Start: 12-26-2004 End: 12-26-2004 Patient encounter procedure [facility] Start: 08-01-2004 End: 08-01-2004 Patient encounter procedure Damon Og [facility] Start: 07-16-2004 End: 07-16-2004 Patient encounter procedure Damon Og [facility] Start: 02-03-2003 End: 02-03-2003 Patient encounter procedure Damon Og [facility] Start: 01-20-2003 End: 01-28-2003 Discharged Recurring Damon Og [facility] Start: 08-09-2002 End: 08-09-2002 Patient encounter procedure Damon Og [facility] Start: 07-05-2001 End: 07-05-2001 Admission to day surgery Damon Og [facility] Start: 06-10-2001 End: 06-10-2001 Patient encounter procedure Damon Og [facility] Start: 10-06-2000 End: 10-06-2000 Emergency department patient visit Damon Og [facility] Start: 01-09-2000 End: 01-09-2000 Emergency department patient visit Damon Og [facility] Start: 01-08-2000 End: 01-29-2000 Discharged Recurring Damon Og [facility] Start: 09-19-1999 End: 09-19-1999 Emergency department patient visit Damon Og [facility] Start: 09-19-1999 End: 09-28-1999 Discharged Recurring Damon Og [facility] Start: 06-25-1993 End: 06-25-1993 Emergency department patient visit Damon Og [facility] Start: 10-23-1992 End: 10-23-1992 Emergency department patient visit Damon Og [facility] Start: 08-09-1992 End: 08-09-1992 Emergency department patient visit Damon Og [facility] Start: 07-26-1992 End: 07-26-1992 Emergency department patient visit [facility] Start: 06-23-1991 End: 06-23-1991 Emergency department patient visit [facility] Start: 06-17-1991 End: 06-17-1991 Emergency department patient visit [facility] Start: 06-07-1991 End: 06-07-1991 Emergency department patient visit [facility] Start: 03-16-1991 End: 03-16-1991 Emergency department patient visit [facility] Start: 01-22-1988 End: 01-22-1988 Departed Referred Damon [facility] Procedures Date Procedure Procedure Detail Performing Clinician Start: 01-23-2021 Mammography Shi Mcclain i, MD Work Phone: Start: 01-09-2021 Colonoscopy Shi Mcclain i, MD Work Phone: Start: 12-06-2020 Ct abdomen & pelvis w/contrast material Aviva Walker CEO [employer]OTH OPERATOR Work Phone: Start: 11-12-2020 Radex hip unilateral with pelvis 2-3 views Aviva Walker CEO [employer] OPERATOR Work Phone: Start: 11-12-2020 Lipid 1996 panel - S rach or Plasma Shi Trinidad MD Work Phone: Start: 12-13-2019 Adult depression scr eening assessment Shi Trinidad MD Work Phone: Start: 09-16-2018 Mri any jt lower ext rem w/o contrast matrl ALEKSEY SOSAHU Start: 08-30-2017 Aerobic microbial culture Damon [facility] Start: 08-30-2017 Anaerobic microbial culture Damon [facility] Start: 08-30-2017 Bacteria identificat ion test Damon [facility] Plan of Treatment Date Care Activity Detail Author Start: 01-09-2031 Screening for malign ant neoplasm of colon [facility] Start: 03-11-2028 Urine microalbumin profile [facility] Start: 11-12-2025 Lipid 1996 panel - S rach or Plasma Lipid Screening [facility] Start: 11-12-2025 LIPID SCREEN LIPID SCREEN [facility] Start: 05-29-2024 End: 05-29-2024 Patient encounter procedure 05/29/2024 9:00 AM EST Office Visit [facility] [address] [place] [id number] Boo Bey MD [address] [place] [phone] [facility] Start: 03-21-2024 End: 03-21-2025 Albumin, urine, random Albumin, urine, random Lab Routine Type 2 diabetes mellitus with hyperglycemia, without long-term current use of insulin ([facility]) Expected: 03/21/2024 (Approximate), Expires: 03/21/2025 [facility] Work Phone: Comment on above: Expected: 03/21/2024 (Approximate), Expires: 03/21/2025 Start: 03-21-2024 End: 03-21-2025 Basic metabolic 1998 panel - Serum or Plasma Basic metabolic panel Lab Routine Annual physical exam Expected: 03/21/2024 (Approximate), Expires: 03/21/2025 [facility] Comment on above: Expected: 03/21/2024 (Approximate), Expires: 03/21/2025 Start: 03-21-2024 End: 03-21-2025 CBC W Auto Differential panel - Blood CBC and differential Lab Routine Annual physical exam Expected: 03/21/2024 (Approximate), Expires: 03/21/2025 [facility] Comment on above: Expected: 03/21/2024 (Approximate), Expires: 03/21/2025 Start: 03-21-2024 End: 03-21-2025 Hemoglobin A1c/Hemoglobin.total in Blood Hemoglobin A1c Lab Routine Annual physical exam Expected: 03/21/2024 (Approximate), Expires: 03/21/2025 [facility] Comment on above: Expected: 03/21/2024 (Approximate), Expires: 03/21/2025 Start: 03-21-2024 End: 03-21-2025 Hepatic function 2000 panel - Serum or Plasma Hepatic function panel Lab Routine Annual physical exam Expected: 03/21/2024 (Approximate), Expires: 03/21/2025 [facility] Comment on above: Expected: 03/21/2024 (Approximate), Expires: 03/21/2025 Start: 03-21-2024 End: 03-21-2025 Lipid 1996 panel - Serum or Plasma Lipid panel Lab Routine Annual physical exam Expected: 03/21/2024 (Approximate), Expires: 03/21/2025 [facility] Comment on above: Expected: 03/21/2024 (Approximate), Expires: 03/21/2025 Start: 03-21-2024 End: 05-21-2025 MG Breast - bilateral Screening Bilateral screening mammogram Imaging Routine Breast cancer screening by mammogram Expected: 03/21/2024, Expires: 05/21/2025 [facility] Comment on above: Expected: 03/21/2024 , Expires: 05/21/2025 Start: 03-21-2024 End: 03-21-2025 Thyrotropin [Units/volume] in Serum or Plasma TSH Lab Routine Annual physical exam Expected: 03/21/2024 (Approximate), Expires: 03/21/2025 [facility] Comment on above: Expected: 03/21/2024 (Approximate), Expires: 03/21/2025 Start: 03-21-2024 End: 03-21-2024 Patient encounter procedure [facility] Comment on above: Arrived Start: 01-30-2024 Influenza vaccination Influenza Vacc ine (#1) [facility] Start: 11-13-2023 DIABETES SCREEN DIABETES SCREEN [facility] Start: 11-13-2023 Diabetes Screening Diabetes Screenin g [facility] Start: 07-12-2023 End: 07-12-2023 Patient encounter procedure 07/12/2023 8:30 AM EST Office Visit [facility] [address] [place] [phone] Boo Bey MD [address] [place] [address] [facility] Start: 06-01-2023 HPV TESTING HPV TESTING [facility] Start: 06-01-2023 PAP TESTING PAP TESTING [facility] Start: 06-01-2023 Screening for malign ant neoplasm of cervix [facility] Start: 01-29-2023 Influenza vaccination C [facility] Start: 05-31-2022 DEPRESSION ASSESSMENT DEPRESSION ASS ESSMENT [facility] Start: 01-29-2022 Influenza vaccination INFLUENZA (#1) [facility] Start: 01-23-2022 Mammography [facility] Start: 01-23-2022 Screening for malign ant neoplasm of breast Mammogram [facility] Start: 01-09-2022 Colonoscopy COLONOSCOPY [facility] Start: 01-09-2022 COLORECTAL CANCER SCREENING COLORECTAL CANCER SCREENING [facility] Start: 12-11-[address] [facility] JUSTICE LIZZY DISEASE VISIT ANNUAL PCP TEAM CHRONIC DISEASE VISIT [facility] Start: 05-31-2021 DEPRESSION ASSESSMENT DEPRESSION ASS ESSMENT [facility] Start: 12-12-2020 Adult depression screening assessment DEPRESSION SCREENING [facility] Start: 03-11-2019 PNEUMOCOCCAL (2 - PCV) PNEUMOCOCCAL (2 - PCV) [facility] Start: 03-11-2019 Pneumococcal vaccination Pneum ococcal Vaccine (2 - PCV) [facility] Start: 2017 SHINGRIX VACCINE (1 of 2) SHINGRIX VACCINE (1 of 2) [facility] Start: 2012 COLOGUARD (FIT-DNA) COLOGUARD (FIT-D NA) [facility] Start: [address] COLONOGRAPHY [facility] Start: 2012 FECAL OCCULT BLOOD FECAL OCCULT BLOO D [facility] Start: 2012 SIGMOIDOSCOPY SIGMOIDOSCOPY [facility] Start: 2007 Screening for malign ant neoplasm of breast Mammogram [facility] Start: 1997 Screening for malign ant neoplasm of cervix [facility] Start: 1988 Screening for malign ant neoplasm of cervix Pap Smear [facility] Start: 1986 Urine screening for protein Diabetes: Urine Protein Screening [facility] Start: 1985 BP CONTROLLED (<130/80) BP CONTROLLE D (<130/80) [facility] Start: 1985 HEPATITIS C SCREENING HEPATITIS C SC REENING [facility] Start: 1985 HIV SCREENING HIV SCREENING [facility] Start: 1977 Glaucoma screening Diabetes: R etinopathy Screening [facility] Start: 1967 COVID-19 VACCINE (#1) COVID-19 VACCI NE (#1) [facility] Start: 1967 Hemoglobin A1c measurement Diabetes: Hemoglobin A1C [facility] Start: 1967 HEPATITIS B (1 of 3 - 3-dose series) HEPATITIS B (1 of 3 - 3-dose series) [facility] Start: 1967 Hepatitis B Vaccine (1 of 3 - 3-dose series) Hepatitis B Vaccine (1 of 3 - 3-dose series) [facility] Start: 1967 Screening for malign ant neoplasm of colon [facility] End: 03-11-2024 OBINNA SCREENING [facility] SCREENING Radiology Routine Encounter for screening mammogram for breast cancer 1 Occurrences starting 02/10/2023 until 03/11/2024 [facility] Work Phone: Comment on above: 1 Occurrences startlois ng 02/10/2023 until 03/11/2024 End: 04-03-2023 Screening mammography bi 2-view breast inc cad OBINNA SCREENING Radiology Routine Encounter for screening mammogram for breast cancer 1 Occurrences starting 03/04/2022 until 04/03/2023 [facility] Work Phone: Comment on above: 1 Occurrences starti ng 03/04/2022 until 04/03/2023 Immunizations Immunization Date Immunization Notes Care Provider Fa [facility] 03-11-2018 pneumococcal polysaccharide vaccine, 23 valent Shi Trinidad MD Work Phone: [facility] 03-11-2018 tetanus toxoid, redu rolando diphtheria toxoid, and acellular pertussis vaccine, adsorbed Shi Trinidad MD Work Phone: [facility] 03-11-2018 influenza virus vacc ine, unspecified formulation Shi Trinidad MD Work Phone: [facility] 10-23-2016 hepatitis A vaccine, pediatric/adolescent dosage, 2 dose schedule Shi Trinidad MD Work Phone: [facility] 10-23-2016 human papilloma viru s vaccine, quadrivalent Shi Trinidad MD Work Phone: [facility] 10-23-2016 meningococcal polysaccharide vaccine (MPSV4) Shi Trinidad MD Work Phone: [facility] 10-23-2016 poliovirus vaccine, inactivated Shi Trinidad MD Work Phone: [facility] Payers Date Payer Category Payer [facility] [id number] 2017 Unknown [id number] 1965 Unknown [id number] 1965 Unknown [id number] 1965 Unknown [id number] 1965 Unknown [id number] 1957 Unknown [id number] Self-pay Unknown [id number] Social History Date Type Detail Facility Tobacco smoking stat us NHIS Unknown if ever smoked [facility] Start: 1965 Sex Assigned At Female [facility] Start: 03-11-2018 End: 03-21-2024 Tobacco smoking status NHIS Smokes tobacco daily [facility] History of tobacco use Cigarette Smoker C [facility] Start: 03-11-2018 End: 03-21-2024 Cigarettes smoked current (pack per day) - Reported 5 [facility] Start: 03-11-2018 Tobacco use and exposure User of smokeless tobacco [facility] Start: 11-12-2020 End: 03-11-2021 Alcohol intake Current drinker of alcohol (finding) [facility] Start: 12-13-2019 History SDOH Alcohol Frequency 3 [facility] Start: 12-13-2019 History SDOH Alcohol Std Drinks 98 [facility] Start: 03-11-2018 History SDOH Alcohol Comment social [facility] Start: 12-13-2019 History SDOH Social Connections Phone 5 [facility] Start: 12-13-2019 History SDOH Social Connections Membership 2 [facility] Start: 12-13-2019 History SDOH Social Connections Meetings 1 [facility] Start: 12-13-2019 History SDOH Stress 4 [facility] Start: 12-13-2019 Education 14 [facility] Start: 03-11-2018 Tobacco Comment smokes 5 cig a day [facility] Start: 12-13-2019 End: 03-21-2024 Social connection and isolation panel [facility] Do you belong to any clubs or organizations such as anabaptist groups, unions, fraternal or athletic groups, or school groups? No [facility] Are you now , , , , never or living with a partner? [facility] How often to you hav e a drink containing alcohol? 2-4 times a month [facility] How many standard dr inks containing alcohol do you have on a typical day? Patient refused [facility] How often do you hav e 6 or more drinks on 1 occasion? Monthly [facility] How hard is it for y ou to pay for the very basics like food, housing, medical care, and heating Somewhat hard [facility] Work Phone: Do you feel stress - tense, restless, nervous, or anxious, or unable to sleep at night because your mind is troubled all the time - these days [OSQ] Rather much [facility] (I/We) worried aquiles er (my/our) food would run out before (I/we) got money to buy more. Often true [facility] Work Phone: In the past 12 month s, was there a time when you were not able to pay the mortgage or rent on time? Yes [facility] Start: 01-11-2019 Gender identity Identifies as female gender (finding) [facility] Start: 01-11-2019 Sexual orientation Heterosexual (finding) [facility] Start: 10-13-2020 End: 11-12-2020 Exposure to SARS-CoV-2 (event) Not sure [facility] How often do you hav e 6 or more drinks on 1 occasion? Monthly [facility] Start: 1965 Sex Assigned At Not on file [facility] Start: 03-21-2024 Tobacco use and exposure Smokeless tobacco non-user [facility] Goals Date Patient Goal Desired Activity /State Clinical Notes 01-08-2022 to 03-21-2024 Boo Bey MD - 03/21/2024 2:34 PM Jenny Bey MD - 03/21/2024 2:34 PM Jenny Bey MD - 03/21/2024 2:33 PM Jenny Bey MD - 03/21/2024 2:33 PM EDT Note Date & Type Note Facility 03-21-2024 History of Present illness Narrative Associated Problem(s): Type 2 diabetes mellitus with hyperglycemia, without long-term current use of insulin ([facility]) Reports BS controlled and due for A1C. Stick to ADA diet and limit carbs. Associated Problem(s): Hypertension, essential ([facility]) BP elevated and need to monitor PRN. Take lisinopril daily. Discussed DASH diet. Associated Problem(s): Class 3 severe obesity due to excess calories with serious comorbidity and body mass index (BMI) of 40.0 to 44.9 in adult ([facility]) Weight unchanged and increase ozempic. Associated Problem(s): Chronic pain of right ankle Pain stable and use ultram PRN. Increase activity and walk regularly. Associated Problem(s): Bilateral primary osteoarthritis of knee Pain stable and use ultram PRN. Increase activity and walk regularly. Images from the original note were not included. Subjective Patient ID: Queen Robinson Gibson is a 58 y.o. female who presents for Nausea (And sleepy ). Follow up DM, HTN, OA knees, and ankle pain. Last seen March 2023. Took extra metformin few days ago and worried about taking excess medication. Stopped all meds for few days. Reports BS typically controlled but doesn't remember numbers. States when checks compares to scale and says in normal range. Tries to eat well and stick to ADA diet. Denies signs of elevated BS such as polyuria, polyphagia or polydipsia. Not checking BP away from office and very elevated today. Not on lisinopril for several days. Pain unchanged. Increased pain in knees and left ankle. Frequent popping, clicking, and grinding. Pain with walking and standing. Using ultram PRN and helps. Weight unchanged and remains on ozempic. Review of Systems Respiratory: Negative for cough, shortness of breath and wheezing. Cardiovascular: Negative for chest pain and palpitations. Gastrointestinal: Negative for abdominal pain, diarrhea, nausea and vomiting. Genitourinary: Negative for dysuria. Objective Physical Exam Constitutional: General: She is not in acute distress. Appearance: Normal appearance. HENT: Head: Normocephalic. Right Ear: Tympanic membrane normal. Left Ear: Tympanic membrane normal. Eyes: Extraocular Movements: Extraocular movements intact. Pupils: Pupils are equal, round, and reactive to light. Cardiovascular: Rate and Rhythm: Normal rate and regular rhythm. Heart sounds: No murmur heard. No friction rub. No gallop. Pulmonary: Effort: Pulmonary effort is normal. Breath sounds: Normal breath sounds. No wheezing, rhonchi or rales. Abdominal: General: Bowel sounds are normal. There is no distension. Palpations: Abdomen is soft. Tenderness: There is no abdominal tenderness. There is no guarding or rebound. Musculoskeletal: Cervical back: Neck supple. Right lower leg: No edema. Left lower leg: No edema. Neurological: Mental Status: She is alert. Assessment/Plan Problem List Items Addressed This Visit Hypertension, essential ([facility]) BP elevated and need to monitor PRN. Take lisinopril daily. Discussed DASH diet. Dyslipidemia ([facility]) Class 3 severe obesity due to excess calories with serious comorbidity and body mass index (BMI) of 40.0 to 44.9 in adult ([facility]) Weight unchanged and increase ozempic. Type 2 diabetes mellitus with hyperglycemia, without long-term current use of insulin ([facility]) - Primary Reports BS controlled and due for A1C. Stick to ADA diet and limit carbs. Relevant Medications semaglutide (Ozempic) 2 MG/1.5ML solution pen-injector Other Relevant Orders Albumin, urine, random Chronic pain of right ankle Pain stable and use ultram PRN. Increase activity and walk regularly. Bilateral primary osteoarthritis of knee Pain stable and use ultram PRN. Increase activity and walk regularly. Annual physical exam Relevant Orders Hemoglobin A1c Basic metabolic panel CBC and differential Hepatic function panel Lipid panel TSH Other Visit Diagnoses Breast cancer screening by mammogram Relevant Orders Bilateral screening mammogram documented in this encounter [facility] 02-10-2023 Note Patient Outreach (IN TMMN) QUEEN Tyrese GIBSON ([id number]) 1965 F FNS Date Time Provider Department 02/10/23 SHI TRINIDAD During your visit today, we recorded the following information about you: Allergies As of Date: 02/10/2023 (No Known Allergies) Date Reviewed: 03/11/2021 Reviewed by: Nadege Cordoba APRN.BOOTH OPERATOR - Fully Assessed Visit Diagnosis:Encounter for screening mammogram for breast cancer [Z12.31] Order(s):[facility] SCREENING [[id number]] Order #: [id number] FUTURE Prescriptions as of 02/15/2023 - Surgical Lubricant Jelly gel For MRI Female Pelvis, MRI department to provide. Administer intra-vaginal Surgilube immediately prior the MRI procedure (total amount to patient toleranace). - hydroCHLOROthiazide (HYDRODIURIL, ESIDRIX) 25 mg tablet Take 1 tablet by mouth once daily. Problem List As Of Date 02/10/2023 Noted Resolved Screening for colon cancer [Z12.11] 03/11/2018 Hypertension, essential [I10] 12/12/2019 Atherosclerosis of arteries [I70.90] 12/11/2020 Fibroids [D21.9] 12/11/2020 Hepatic steatosis [K76.0] 12/11/2020 Positive colorectal cancer screening using [place]*01/09/2021 Encounter Status:Closed by BEATRICE LYNNE on 02/15/23 [facility] 03-04-2022 Note Patient Outreach (IN TMMN) QUEEN Tyrese GIBSON ([id number]) 1965 F FNS Date Time Provider Department 03/04/22 SHI TRINIDAD During your visit today, we recorded the following information about you: Allergies As of Date: 03/04/2022 (No Known Allergies) Date Reviewed: 03/11/2021 Reviewed by: Nadege Reaper, CEO ZIFF DAVIS.BOOTH OPERATOR - Fully Assessed Visit Diagnosis:Encounter for screening mammogram for breast cancer [Z12.31] Order(s):[facility] SCREENING [[id number]] Order #: [id number] FUTURE Prescriptions as of 03/09/2022 - Surgical Lubricant Jelly gel For MRI Female Pelvis, MRI department to provide. Administer intra-vaginal Surgilube immediately prior the MRI procedure (total amount to patient toleranace). - hydroCHLOROthiazide (HYDRODIURIL, ESIDRIX) 25 mg tablet Take 1 tablet by mouth once daily. Problem List As Of Date 03/04/2022 Noted Resolved Screening for colon cancer [Z12.11] 03/11/2018 Hypertension, essential [I10] 12/12/2019 Atherosclerosis of arteries [I70.90] 12/11/2020 Fibroids [D21.9] 12/11/2020 Hepatic steatosis [K76.0] 12/11/2020 Positive colorectal cancer screening using [place]*01/09/2021 Encounter Status:Closed by Mobile AutomationBEATRICE on 03/09/22 [facility] 01-08-2022 Miscellaneous Notes Patient presented to the [facility] ED on 01/07/2022 for complaints of sprain to right ankle. Left message for patient to return call. Last visit with PCP/Team 12/12/2020 ED NOTES: Patient arrives by private vehicle with right ankle pain. The patient states she bumped her ankle on something metallic at work last . She has not noted pain and swelling. MDM: Sprain of right ankle, unspecified ligament, initial encounter Prescriptions given to patient: traMADoL (ULTRAM) 50 mg tablet Indications: Sprain of right ankle, unspecified ligament, initial encounter Take 1 tablet (50 mg total) by mouth every 8 (eight) hours as needed for pain for up to 2 days. 6 tablet 0 01/07/2022 01/09/2022 Recommended follow-up with: PCP documented in this encounter [facility] Evaluation note Diagnosis Encounter for screening mammogram for breast cancer [facility] Diagnosis Left lower quadrant abdominal mass Abdominal or pelvic swelling, mass, or lump, left lower quadrant [facility] Diagnosis Left hip pain Pain in joint, pelvic region and thigh [facility] Diagnosis Encounter for screening mammogram for breast cancer [facility]* Diagnosis Arthritis of ankle- Primary documented in this encounter [facility]* Diagnosis Chronic pain of right ankle- Primary documented in this encounter [facility]* Diagnosis Type 2 diabetes mellitus with hyperglycemia, without long-term current use of insulin (CMS/HCC)- Primary Hypertension, essential (CMS/HCC) Unspecified essential hypertension Bilateral primary osteoarthritis of knee Chronic pain of right ankle Dyslipidemia (CMS/HCC) Other and unspecified hyperlipidemia Class 3 severe obesity due to excess calories with serious comorbidity and body mass index (BMI) of 40.0 to 44.9 in adult (CMS/HCC) Breast cancer screening by mammogram Annual physical exam Routine general medical examination at a health care facility Type 2 diabetes mellitus with other specified complication (CMS/HCC) [facility] Diagnostic Procedure Only (Routine) - Pending Review Specialty Diagnoses / Procedures Referred By Mary franklin Referred To Contact BR IMAGING Diagnoses Encounter for screening mammogram for breast cancer Procedures [facility] SCREENING SCREENING MAMMOGRAPHY BI 2-VIEW BREAST INC CAD Shi Trinidad MD [address] [place] [address] Br Imaging [facility] [place] [address] Referral ID Status Reason Start Date Expiration Date Visits Requested Visits Authorized [id number] Pending Review Auto-Generat ed Referral 03/04/2022 04/03/2023 1 1 [facility] for referral (narrative)* Diagnostic Procedure Only (Routine) - Closed Specialty Diagnoses / Procedures Referred By Contac t Referred To Contact CT IMAGING Diagnoses Left lower quadrant abdominal mass R19.04 (ICD-10-CM) - Left lower quadrant abdominal mass Procedures CT ABD/PEL W IVCON CT ABD & PELVIS W/CONTRAST CT ABD/PEL W Aviva Segura, CEO ZIFF DAVIS.BOOTH OPERATOR [address] [place] [address] Ct Imaging Referral ID Status Reason Start Date Expiration Date V isits Requested Visits Authorized [id number] Closed Auto-Generate d Referral 11/21/2020 12/20/2020 2 2 T [facility] for referral (narrative)* Diagnostic Procedure Only (Routine) - Pending Review Specialty Diagnoses / Procedures Referred By Contac t Referred To Contact BR IMAGING Diagnoses Encounter for screening mammogram for breast cancer Procedures [facility] SCREENING SCREENING MAMMOGRAPHY BI 2-VIEW BREAST INC CAD Shi Trinidad MD [address] [place] [address] Br Imaging [address] [place] [address] Referral ID Status Reason Start Date Expiration Date Visits Requested Visits Authorized [id number] Pending Review Auto-Generat ed Referral 02/10/2023 03/11/2024 1 1 [facility] for visit Narrative* Diagnostic Procedure Only (Routine) - Closed Specialty Diagnoses / Procedures Referred By Contac t Referred To Contact CT IMAGING Diagnoses Left lower quadrant abdominal mass R19.04 (ICD-10-CM) - Left lower quadrant abdominal mass Procedures CT ABD/PEL W IVCON CT ABD & PELVIS W/CONTRAST CT ABD/PEL W Aviva Segura, CEO ZIFF DAVIS.BOOTH OPERATOR [address] [place] [address] Ct Imaging Referral ID Status Reason Start Date Expiration Date V isits Requested Visits Authorized [id number] Closed Auto-Generate d Referral 11/21/2020 12/20/2020 2 2 [facility] Summary Purpose Family History No Family History Records FoundNo Family History Records FoundNo Family History Records FoundNo Family History Records FoundNo Family History Records Found Advance Directives No Advanced Directives Records FoundNo Advanced Directives Records FoundNo Advanced Directives Records FoundNo Advanced Directives Records FoundNo Advanced Directives Records Found Procedure Findings Note Post Operative Note: Post-Pr ocedure Diagnosis: l mmt Procedure: L medial menisectomy Surgeon: bettina Resident/Fellow/Other Skip Pitman: markel Estimated Blood Loss (mL): 50 Specimen: no Findings: none Signature/Cosignature/Attestation: Attending AttestationI performed the procedure without a resident Electronic Signatures: Damon Og) (Signed 28-Sep-2018 08:43) Authored: Post Operative Note, Signature/Cosignature/Attestation Last Updated: 28-Sep-2018 08:43 by Damon Og) Chief Complaint and Reason for Visit Encounter Admit Date Chief Complaint Reason for V isit Discharged Recurring December 21, 2018 3:00pm L Knee Assessments No Assessments Information Available Additional Source Comments INFORMATION SOURCE (unrecogn ized section and content) DATE CREATED AUTHOR 09/19/2018 [facility] DATE CREATED AUTHOR AUTHOR'S ORGANIZ ATION 12/18/2018 [facility] DATE CREATED AUTHOR AUTHOR'S ORGANIZ ATION 04/01/2021 [facility] DATE CREATED AUTHOR AUTHOR'S ORGANIZ ATION 11/06/2022 [facility] DATE CREATED AUTHOR AUTHOR'S ORGANIZ ATION 02/15/2023 [facility] Source Comments (unrecognize d section and content) In the event this informatio n is protected by the Federal Confidentiality of Alcohol and Drug Abuse Patient Records regulations: The Federal rules restrict any use of the information to criminally investigate or prosecute any alcohol or drug abuse patient.[facility] the event this information is protected by the Federal Confidentiality of Alcohol and Drug Abuse Patient Records regulations: The Federal rules restrict any use of the information to criminally investigate or prosecute any alcohol or drug abuse patient.[facility] the event this information is protected by the Federal Confidentiality of Alcohol and Drug Abuse Patient Records regulations: The Federal rules restrict any use of the information to criminally investigate or prosecute any alcohol or drug abuse patient.[facility] the event this information is protected by the Federal Confidentiality of Alcohol and Drug Abuse Patient Records regulations: The Federal rules restrict any use of the information to criminally investigate or prosecute any alcohol or drug abuse patient.[facility] the event this information is protected by the Federal Confidentiality of Alcohol and Drug Abuse Patient Records regulations: The Federal rules restrict any use of the information to criminally investigate or prosecute any alcohol or drug abuse patient.[facility] the event this information is protected by the Federal Confidentiality of Alcohol and Drug Abuse Patient Records regulations: The Federal rules restrict any use of the information to criminally investigate or prosecute any alcohol or drug abuse patient.[facility] Reason for Visit (unrecogniz ed section and content) Reason Comments ER F/U Reason Onset Date Comments Med Refill 07/07/2023 Reason Comments Nausea And sleepy Care Teams (unrecognized sec tion and content) Wine Steward/Stewardess Relationship Specialty Start Date End Date Shi Trinidad MD [address] [place] [address] PCP - General Family Practice 01/13/21 Wine Steward/Stewardess Relationship Specialty Start Date End Date Shi Trinidad MD [address] [place] [address] PCP - General Family Medicine 01/13/21 Wine Steward/Stewardess Relationship Specialty Start Date End Date Melinda Gann PA-C [address] [place] [address] PCP - General Internal Medicine 11/12/20 01/12/21 Wine Steward/Stewardess Relationship Specialty Start Date End Date Melinda Gann PA-C [address] [place] [address] PCP - General Internal Medicine 11/12/20 01/12/21 Wine Steward/Stewardess Relationship Specialty Start Date End Date Melinda Gann PA-C [address] [place] [address] PCP - General Internal Medicine 11/12/20 01/12/21 Wine Steward/Stewardess Relationship Specialty Start Date End Date Shi Trinidad MD [address] [facility] [place] [address] PCP - General Family Medicine 01/13/21 Wine Steward/Stewardess Relationship Specialty Start Date End Date Boo Bey MD [address] [place] [phone] PCP - [facility] 06/21/23 Wine Steward/Stewardess Relationship Specialty Start Date End Date Boo Bey MD [address] [place] [phone] PCP - [facility] 06/21/23 Wine Steward/Stewardess Relationship Specialty Start Date End Date Boo Bey MD [address] [place] [phone] PCP - [facility] 06/21/23 Wine Steward/Stewardess Relationship Specialty Start Date End Date Boo Bey MD [address] [place] [phone] PCP - [facility] 06/21/23 FOR RECORDS PERTAINING TO PATIENTS WHO ARE OR HAVE BEEN ENROLLED IN A CHEMICAL DEPENDENCY/SUBSTANCEABUSE PROGRAM, SOME INFORMATION MAY BE OMITTED. This clinical summary was aggregated from multiple sources. Caution should be exercised in using it in the provision of clinical care. This summary normalizes information from multiple sources, and as a consequence, information in this document may materially change the coding, format and clinical context of patient data. In addition, data may be omitted in some cases. CLINICAL DECISIONS SHOULD BE BASED ON THE PRIMARY CLINICAL RECORDS. [facility]. provides no warranty or guarantee of the accuracy or completeness of information in this document.
--- NOTE | 2024-03-24 11:24 | MM_ITS ---
Patient Name: QUEEN JEISON MR#: [id number] : 1965 Exam Date: 03/24/2024 Ordering Doctor: DR Boo Davies . RADIOLOGY REPORT PROCEDURE: MM TOMOSYNTHESIS SCREENING BI COMPARISON: MG MAMM SCREEN 3D KADIE CAD, 10/21/2022. MG MAMM SCREEN KADIE W CAD, 06/19/2010. INDICATIONS: Screening Calculator Name NCI Breast Cancer Risk Assessment Tool 5 Year Breast Cancer Risk 1.40% Lifetime Breast Cancer Risk 7.70% Personal Breast Cancer No Personal Ovarian Cancer No Treatments None Family Cancers Grandmother-paternal with breast cancer at age 60; Father with brain cancer at age 55. LOCATION: [facility] BREAST COMPOSITION: The breasts are heterogeneously dense,which may obscure small masses. FINDINGS: DIAGNOSTIC CATEGORY 1--NEGATIVE. RIGHT BREAST: No significant suspicious finding. No significant change has occurred. LEFT BREAST: No significant suspicious finding. No significant change has occurred. RECOMMENDATIONS: ROUTINE MAMMOGRAM AND CLINICAL EVALUATION IN 12 MONTHS. PLEASE NOTE: A NORMAL MAMMOGRAM DOES NOT EXCLUDE THE POSSIBILITY OF BREAST CANCER. A CLINICALLY SUSPICIOUS PALPABLE LUMP SHOULD BE BIOPSIED. Dictated by: Long Ge M.D. on 03/26/2024 at 19:52 Approved by: Long Ge M.D. on 03/26/2024 at 19:56
[2024-03-24 12:08] LABS: Estimated Average Glucose 169 mg/dL; Glycohemoglobin A1C 7.5 % (4.5-6.2)
[2024-03-24 12:51] LABS: Basophils Percent Auto 0.8 % (0.2-2.0); Eosinophils Absolute Auto 0.1 10^3/uL (0.0-0.7); Eosinophils Percent Auto 1.2 % (0.9-7.0); Hematocrit 41.3 % (36.0-48.0); Immature Granulocytes Abs Auto 0.01 10^3/uL (0.00-0.03); Immature Granulocytes Pct Auto 0.2 % (0.0-0.5); Lymphocytes Percent Auto 39.1 % (20.5-60.0); Mean Corpuscular HGB Conc 31.5 g/dL (29.9-35.2); Mean Corpuscular Hemoglobin 28.6 pg (26.7-34.0); Mean Platelet Volume 10.3 fL (9.5-13.5); Monocytes Absolute Auto 0.5 10^3/uL (0.3-0.8); Monocytes Percent Auto 9.4 % (1.7-12.0); Neutrophils Absolute Auto 2.5 10^3/uL (1.4-6.5); Neutrophils Percent Auto 49.3 % (43.0-75.0); Platelet Count 297 10^3/uL (150-450); Red Blood Count 4.54 10^6/uL (4.20-5.40); Red Cell Distribution Width 14.8 % (11.0-15.0)
[2024-03-24 12:56] LABS: Alanine Aminotransferase 18 U/L (14-59); Albumin Globulin Ratio 0.9; Albumin Level 3.5 g/dL (3.4-5.0); Alkaline Phosphatase 153 U/L (46-116); Anion Gap 11.5; Aspartate Amino Transferase 12 U/L (15-37); BUN Creatinine Ratio 17.1; Bilirubin Direct 0.1 mg/dL (0.0-0.2); Bilirubin Total 0.2 mg/dL (0.2-1.0); Calcium 9.2 mg/dL (8.5-10.1); Carbon Dioxide 31.9 mmol/L (21.0-32.0); Chloride 106 mmol/L (98-107); Chol HDL Ratio 4.2; Cholesterol 263 mg/dL (<=200); Estimated GFR (African America >60 (>=60 mL/min/1.73m^2); Estimated GFR (Non-African Ame 54 (>=60 mL/min/1.73m^2); Globulin 4.1 g/dL; Glucose 113 mg/dL (74-106); HDL Cholesterol 63 mg/dL (40-60); Potassium 4.4 mmol/L (3.5-5.1); Sodium 145 mmol/L (136-145); Thyroid Stimulating Hormone 0.939 uIU/mL (0.358-3.740); Total Protein 7.6 g/dL (6.4-8.2); Triglycerides 140 mg/dL (<=150)
[2024-03-24 13:08] LABS: Microalbumin Urine Random 22.7 mg/dL (<=30.0)
== END 2024-03-24 11:11 | disposition home or self-care (01) ==
LOC: LAB 11:13
PROVIDERS: PCP Family Medicine; Visit Provider Family Medicine
DX: Z00.00 Encounter for general adult medical examination without abnormal findings (principal); E11.65 Type 2 diabetes mellitus with hyperglycemia; Z12.31 Encounter for screening mammogram for malignant neoplasm of breast; Z80.3 Family history of malignant neoplasm of breast; Z80.8 Family history of malignant neoplasm of other organs or systems
CPT/HCPCS: 36415; 77063; 77067; 80048; 80061; 80076; 82043; 83036; 84443; 85025

== ENCOUNTER 2024-08-29 07:57 | Outpatient (OUT) | payer BC, SELFPAY ==
--- OUTSIDE RECORDS SUMMARY | 2024-08-29 08:04 | XMS_ITS | CCD ---
Author Organization [facility] Providers Care Floor Polisher Name Role Phone ROSARIOALEKSEY GILMORE [place] Referring Unavailable PARIS BOYKIN Primary Care Unavailable Damon Og Attending Physician Unavailable Paris Boykin Primary Care Physician Danial Trinidad MD, Shi Primary Care Provider Shi Trinidad MD Primary Care Provider SOTERO, DR BOO Solorzano Primary Care Unavailable NADEREKishore, DR BOO Solorzano Attending Unavailable NADERER, DR BOO Solorzano Admitting Unavailable ZIEBER, DR JABIER Novak Consulting Unavailable NADERER, DR BOO Solorzano Consulting Unavailable NADERER, DR BOO Solorzano Primary Care Unavailable AICHHOLZ, STAFF ACCOUNTANT MELINDA Admitting Unavailable AICHHOLZ, STAFF ACCOUNTANT MELINDA Consulting Unavailable AICHHOLZ, STAFF ACCOUNTANT MELINDA Attending Unavailable BENNIE CHAMBERS Consulting Unavailable NADERER, DR BOO Solorzano Consulting Unavailable NADERER, DR BOO Solorzano Attending Unavailable NADERER, DR BOO Solorzano Admitting Unavailable SOMERSLUCIO LYLES Consulting Unavailable NORIS MEDINA Consulting Unavailable Gannduke CHUNG, Melinda Primary Care Provider Viry HADLEY, Shi Primary Care Provider [phone] Boo Bey MD Primary Care Provider Boo Bey MD Unavailable BOO BEY Attending Unavailable NANCYEREKishore, BOO Attending Unavailable NANCYEREKishore, BOO Attending Unavailable NANCYEREKishore, BOO Attending Unavailable Unavailable Unavailable Unavailable Medications Current Medications Medication Drug Class(es) Dates Sig (Normalized) Sig (Original) [id number] 200 actuat albuterol 0.09 mg/actuat metered dose inhaler (5 sources) beta2-Adrenergic Agonist Start: 06-08-2024 End: 06-08-2025 take 2 puff(s) by inhalation every four hours for wheezing albuterol HFA 90 mcg/act inhaler Indications: Acute bronchitis due to other specified organisms Inhale 2 puffs every 4 (four) hours if needed for shortness of breath or wheezing 18 g 2 06/08/2024 08/28/2024 Discontinued atorvastatin 40 mg oral tablet (18 sources) HMG-CoA Reductase Inhibitor Start: 04-05-2024 End: 04-05-2024 take 1 tablet by mouth once daily atorvastatin (Lipitor) 40 MG tablet Indications: Type 2 diabetes mellitus with hyperglycemia, without long-term current use of insulin ([facility]) Take 1 tablet (40 mg) by mouth Daily 30 tablet 5 04/05/2024 Active Blood Glucose Monitoring Suppl (True Metrix Air Glucose Meter) w/Device kit (17 sources) Blood Glucose Monitoring Suppl (True Metrix Air Glucose Meter) w/Device kit Active Blood Glucose Mo nitoring Suppl (True Metrix Air Glucose Meter) w/Device kit celecoxib 200 mg oral capsule (17 sources) Nonsteroidal Anti-inflammatory Drug take 1 capsule by mouth in the morning celecoxib (CeleBREX) 200 MG capsule Take 200 mg by mouth in the morning and 200 mg before bedtime. Active cyclobenzaprine hydrochloride 10 mg oral tablet (2 sources) Muscle Relaxant Start: 2024 take 1 tablet by mouth three times daily as needed for muscle spasms cyclobenzaprine (Flexeril) 10 MG tablet Indications: Chronic pain of right ankle Take 1 tablet (10 mg) by mouth 3 (three) times a day as needed for muscle spasms 60 tablet 2 08/28/2024 Active Start: 08-28-2024 take 1 tablet by hilaria th three times daily as needed for muscle spasms cyclobenzaprine (Flexeril) 10 MG tablet Indications: Chronic pain of right ankle Take 1 tablet (10 mg) by mouth 3 (three) times a day as needed for muscle spasms 60 tablet 2 08/28/2024 Active dicyclomine hydrochloride 20 mg oral tablet (8 sources) Anticholinergic Start: 05-29-2024 End: 08-28-2024 take 1 tablet by mouth four times daily as needed dicyclomine (Bentyl) 20 MG tablet Indications: Viral gastroenteritis Take 1 tablet (20 mg) by mouth 4 (four) times a day as needed (Abdominal cramping) 30 tablet 2 05/29/2024 08/28/2024 Discontinued fluconazole 150 mg oral tablet (3 sources) Azole Antifungal Start: 06-26-2024 End: 08-28-2024 fluconazole (Diflucan) 150 MG tablet Indications: Vaginal zenia One time dose; May repeat in 72 hours if needed 2 tablet 1 06/26/2024 08/28/2024 Discontinued glipiZIDE 10 mg oral tablet (20 sources) Sulfonylurea Start: 10-14-2023 End: 10-13-2024 take 1 tablet by mouth once daily glipiZIDE XL (Glucotrol XL) 10 MG 24 hr tablet Indications: Type 2 diabetes mellitus with hyperglycemia, without long-term current use of insulin ([facility]) Take 1 tablet (10 mg) by mouth Daily Do not crush, chew, or split. 30 tablet 11 10/14/2023 03/21/2024 Discontinued Start: 05-11-2023 End: 04-05-2024 take 1 tablet by mouth once daily glipiZIDE (Glucotrol) 10 MG tablet Indications: Type 2 diabetes mellitus with hyperglycemia, without long-term current use of insulin ([facility]) Take 1 tablet (10 mg) by mouth Daily 30 tablet 5 04/05/2024 Active take 1 tablet by hilaria th every twenty-four hours in the morning glipiZIDE XL (Glucotrol XL) 10 MG 24 hr tablet Take 10 mg by mouth in the morning. Do not crush, chew, or split.. 0 Active levoFLOXacin 750 mg oral tablet (2 sources) Quinolone Antimicrobial Start: 06-08-2024 End: 06-15-2024 take 1 tablet by mouth once daily levoFLOXacin (Levaquin) 750 MG tablet Indications: Acute bronchitis due to other specified organisms Take 1 tablet (750 mg) by mouth Daily for 7 days 7 tablet 06/08/2024 06/15/2024 Active lisinopril 30 mg oral tablet (18 sources) Angiotensin Converting Enzyme Inhibitor Start: 10-14-2023 End: 10-13-2024 take 1 tablet by mouth once daily lisinopril 30 MG tablet Indications: Benign hypertension (CMS/HCC) Take 1 tablet (30 mg) by mouth Daily 30 tablet 5 04/05/2024 Active take 1 tablet by mouth in the mo rning lisinopril 30 MG tablet Take 30 mg by mouth in the morning. 0 Active 24 hr metFORMIN hydrochloride 500 mg extended release oral tablet (19 sources) Biguanide Start: 05-01-2024 take 1 tablet by mouth once daily metFORMIN XR (Glucophage-XR) 500 MG 24 hr tablet Indications: Type 2 diabetes mellitus with hyperglycemia, without long-term current use of insulin (CMS/HCC) TAKE 1 TABLET BY MOUTH ONCE DAILY 30 tablet 3 05/01/2024 Active Start: 03-02-2024 take 1 tablet by hilaria th once daily metFORMIN XR (Glucophage-XR) 500 MG [...] Active ondansetron 4 mg disintegrating oral tablet (11 sources) Serotonin-3 Receptor Antagonist Start: 05-17-2023 End: 05-29-2024 take 1 tablet by mouth every six hours as needed for nausea and vomiting and nausea and nausea ondansetron ODT (Zofran-ODT) 4 MG disintegrating tablet Indications: Nausea Take 1 tablet (4 mg) by mouth every 6 (six) hours if needed for nausea or vomiting 20 tablet 1 05/17/2023 05/29/2024 Discontinued Ozempic, 1 MG/DOSE, 4 MG/3ML solution pen-injector (4 sources) Start: 04-07-2024 End: 05-29-2024 inject 1 mg by subcutaneous injection every week Ozempic, 1 MG/DOSE, 4 MG/3ML solution pen-injector Indications: Type 2 diabetes mellitus with hyperglycemia, without long-term current use of insulin (CMS/HCC) INJECT 1mg SUBCUTANEOUSLY (UNDER THE SKIN) ONCE A WEEK 3 mL 5 04/07/2024 05/29/2024 Discontinued (Reorder) Start: 04-07-2024 inject 1 mg by subcu taneous injection every week Ozempic, 1 MG/DOSE, 4 MG/3ML solution pen-injector Indications: Type 2 diabetes mellitus with hyperglycemia, without long-term current use of insulin (CMS/HCC) INJECT 1mg SUBCUTANEOUSLY (UNDER THE SKIN) ONCE A WEEK 3 mL 5 04/07/2024 Active predniSONE 50 mg oral tablet (2 sources) Start: 06-08-2024 End: 06-14-2024 take 1 tablet by mouth once daily predniSONE (Deltasone) 50 MG tablet Indications: Acute bronchitis due to other specified organisms Take 1 tablet (50 mg) by mouth Daily for 6 days 6 tablet 06/08/2024 06/14/2024 Active 1 mg dose 1.5 ml semaglutide 1.34 mg/ml pen injector (5 sources) Start: 03-21-2024 End: 04-05-2024 inject 1 mg by subcutaneous injection every week semaglutide (Ozempic) 2 MG/1.5ML solution pen-injector Indications: Type 2 diabetes mellitus with hyperglycemia, without long-term current use of insulin (CMS/HCC) Inject 1 mg under the skin 1 (one) time per week 2 each 5 04/05/2024 Active semaglutide (Ozempic, 1 MG/DOSE,) 4 MG/3ML solution pen-injector (8 sources) Start: 05-29-2024 inject 1 mg by subcutaneous injection every week semaglutide (Ozempic, 1 MG/DOSE,) 4 MG/3ML solution pen-injector Indications: Type 2 diabetes mellitus with hyperglycemia, without long-term current use of insulin (CMS/HCC) Inject 1 mg under the skin 1 (one) time per week 3 mL 5 05/29/2024 Active traMADol hydrochloride 50 mg oral tablet (9 sources) Opioid Agonist Start: 08-28-2024 End: 09-04-2024 take 1 tablet by mouth four times daily as needed for pain traMADol (Ultram) 50 MG tablet Indications: Chronic pain of right ankle Take 1 tablet (50 mg) by mouth 4 (four) times a day as needed for severe pain for up to 7 days 28 tablet 08/28/2024 09/04/2024 Active Start: 05-04-2024 End: 05-11-2024 take 1 tablet by mouth four times daily as needed for pain traMADol (Ultram) 50 MG tablet Indications: Chronic pain of right ankle Take 1 tablet (50 mg) by mouth 4 (four) times a day as needed for severe pain for up to 7 days 28 tablet 05/04/2024 05/11/2024 Active Start: 03-15-2024 End: 03-22-2024 take 1 tablet [...] Drug Class(es) Dates Sig (Normalized) Sig (Original) hydroCHLOROthiazide 25 mg oral tablet (3 sources) Thiazide Diuretic Start: 1 take 1 tablet by mouth once daily hydroCHLOROthiazide (HYDRODIURIL, ESIDRIX) 25 mg tablet Take 1 tablet by mouth once daily. 30 tablet 11 12/11/2020 Active Comment on above: Take 1 tablet by hilaria th once daily. Semaglutide,0.25 or 0.5MG/DOS, (Ozempic, 0.25 or 0.5 MG/DOSE,) 2 MG/3ML solution pen-injector (5 sources) Start: 4 End: 4 Semaglutide,0.25 or 0.5MG/DOS, (Ozempic, 0.25 or 0.5 [...] Da te Episodic/Chronic Diabetes mellitus with complications (20 sources) Hyperglycemia due to type 2 diabetes mellitus; Translations: [Type 2 diabetes mellitus with hyperglycemia] Onset: 03-15-2024 03-15-2024 Chronic Disorders of lipid metabolism (20 sources) Dyslipidemia; Translations: [Hyperlipidemia, unspecified] Onset: 03-15-2024 03-15-2024 Chronic Essential hypertension (20 sources) Essential hypertension; Translations: [Essential (primary) hypertension] Onset: 12-12-2019 12-12-2019 Chronic Immunizations and screening for infectious disease (4 sources) At risk of sexually transmitted infection ; Translations: [Contact with and (suspected) exposure to infections with a predominantly sexual mode of transmission] Onset: 08-28-2024 08-28-2024 Episodic Joint disorders and dislocations; trauma-related (1 source) Unspecified internal derangement of left knee; Translations: [Unspecified internal derangement of left knee] Onset: 09-16-2018 Chronic Nonspecific chest pain (4 sources) Chest pain, unspecified; Translations: [CHEST PAIN UNSPECIFIED] Onset: 10-20-2022 Episodic Osteoarthritis (20 sources) Bilateral primary osteoarthritis of knee; Translations: [...] hip] 11-12-2020 Episodic Other non-traumatic joint disorders (20 sources) Chronic ankle pain; Translations: [Pain in right ankle and joints of right foot] Onset: 03-15-2024 03-15-2024 Episodic Other nutritional; endocrine; and metabolic disorders (2 sources) Morbid obesity; Translations: [Morbid (severe) obesity due to excess calories] Onset: 03-15-2024 03-15-2024 Chronic Other nutritional; endocrine; and metabolic disorders (20 sources) Severe obesity; Translations: [Class 3 severe obesity due to excess calories with serious comorbidity and body mass index (BMI) of 40.0 to 44.9 in adult (CMS/HCC)] Onset: 03-15-2024 03-21-2024 Chronic Other screening for [...] Classification Problem Date Documented Da te Episodic/Chronic Acute bronchitis (7 sources) Acute infective bronchitis; Translations: [Acute bronchitis due to other specified organisms] Onset: 06-08-2024 Resolved: 08-28-2024 06-08-2024 Episodic Intestinal infection (10 sources) Viral gastroenteritis; Translations: [Viral intestinal infection, unspecified] Onset: 05-29-2024 Resolved: 08-28-2024 05-29-2024 Episodic Other and unspecified benign neoplasm (3 sources) Leiomyoma; Translations: [Benign neoplasm of connective and other soft tissue, unspecified] Onset: 12-11-2020 12-11-2020 Episodic Other gastrointestinal disorders (3 sources) Stool DNA-based colorectal cancer screening positive; Translations: [Other fecal abnormalities] Onset: 01-09-2021 01-09-2021 Episodic Results Test Name Value Interpretation Reference Range Facility MLR HEMOGLOBIN A1Con 024 Glucose [Mass/Vol] 169 mg/dL [facility] HbA1c (Bld) [Mass fraction] 7.5 % High 4.5 - 6.2 % [facility] Comment on above: ADA RECOMMENDED LIMI T 4.0 - 6.0 ADA THERAPEUTIC TARGET < 7.0 ACTION SUGGESTED > 7.0 Interpretation and review of laboratory results Abnormal [facility] MG MAMM SCREEN 3D KADIE CADon 10-21-2022 MG MAMM SCREEN 3D KADIE CAD Patient: QUEEN Magdalena GIBSON Exam Date: 10/21/2022 : 1965 Gender:F Ordering : DR BOO BEY . Admission #: [id number] Family : Order #: [id number] CLICK HERE TO VIEW EXAM RADIOLOGY REPORT [...] brain cancer at age 57. LOCATION: [facility] BREAST COMPOSITION: Heterogeneously dense,which may obscure small [...] PALPABLE LUMP SHOULD BE BIOPSIED. Dictated by: Jabier Ge M.D. on 10/21/2022 at 15:04 Approved by: Jabier Ge M.D. on 10/21/2022 at 15:06 Normal [facility] XR CHEST 2 Von 10-20-2022 XR CHEST [...] by: BENNIE CHAMBERS Date: 2022-10-20 11:06 Normal [facility] XR KNEE KADIE 3 Von 10-15-2022 XR [...] by: LUCIO SOMERS Date: 2022-10-15 21:16 Normal [facility] CBC AUTO DIFFon 10-14-2022 BASO # 0.1 103/ul Normal 0.0-0.1 [facility] Comment on above: Performed By: #### C BC #### [facility] [address] [address] [address] Marguerite Lynn Basophils/100 WBC (Bld) 1.1 % Normal 0.2-2.0 [facility] Comment on above: Performed By: #### C BC #### [facility] [address] [address] [address] Marguerite Lynn EO # 0.1 103/ul Normal 0.0-0.7 [facility] Comment on above: Performed By: #### C BC #### [facility] [address] [place] [address] Dr. Marguerite Lynn Eosinophils/100 WBC (Bld) 2.2 % Normal 0.9-7.0 [facility] Comment on above: Performed By: #### C BC #### [facility] [address] [place] [address] Dr. Marguerite Lynn Erythrocyte distribution width (RBC) [Ratio] 14.6 % Normal 11.0-15.0 [facility] Comment on above: Performed By: #### C BC #### [facility] [address] [place] [address] Dr. Marguerite Lynn Hematocrit (Bld) [Volume fraction] 39.8 % Normal 36.0-48.0 [facility] Comment on above: Performed By: #### C BC #### [facility] [address] [place] [address] Dr. Marguerite Lynn Hemoglobin (Bld) [Mass/Vol] 12.5 g/dL Normal 12.0-16.0 [facility] Comment on above: Performed By: #### C BC #### [facility] [address] [place] [address] Dr. Marguerite Lynn IG # 0.02 10e3/ul Normal 0.00-0.03 [facility] Comment on above: Performed By: #### C BC #### [facility] [address] [place] [address] Dr. Marguerite Lynn IG % 0.4 % Normal 0.0-0.5 [facility] Comment on above: Performed By: #### C BC #### [facility] [address] [place] [address] Dr. Marguerite Lynn LYMPH # 1.8 103/ul Normal 1.2-3.8 [facility] Comment on above: Performed By: #### C BC #### [facility] [address] [place] [address] Dr. Marguerite Lynn Lymphocytes/100 WBC (Bld) 33.5 % Normal 20.5-60.0 [facility] Comment on above: Performed By: #### C BC #### [facility] [address] [place] [address] Dr. Marguerite Lynn MANUAL DIFF REQ NO Normal [facility] Comment on above: Performed By: #### C BC #### [facility] [address] [place] [address] Dr. Marguerite Lynn MCH (RBC) [Entitic mass] 28.3 pg Normal 26.7-34.0 [facility] Comment on above: Performed By: #### C BC #### [facility] [address] [place] [address] Dr. Marguerite Lynn MCHC (RBC) [Mass/Vol] 31.4 g/dL Normal 29.9-35.2 [facility] Comment on above: Performed By: #### C BC #### [facility] [address] [place] [address] Dr. Marguerite Lynn MCV (RBC) [Entitic vol] 90.2 fL Normal 81.0-99.0 [facility] Comment on above: Performed By: #### C BC #### [facility] [address] [place] [address] Dr. Marguerite Lynn MONO # 0.5 103/ul Normal 0.3-0.8 [facility] Comment on above: Performed By: #### C BC #### [facility] [address] [place] [address] Dr. Marguerite Lynn Monocytes/100 WBC (Bld) 8.3 % Normal 1.7-12.0 [facility] Comment on above: Performed By: #### C BC #### [facility] [address] [place] [address] Dr. Marguerite Lynn NEUT # 2.9 103/ul Normal 1.4-6.5 [facility] Comment on above: Performed By: #### C BC #### [facility] [address] [place] [address] Dr. Marguerite Lynn Neutrophils/100 WBC (Bld) 54.5 % Normal 43.0-75.0 [facility] Comment on above: Performed By: #### C BC #### [facility] [address] [place] [address] Dr. Marguerite Lynn Platelet mean volume (Bld) [Entitic vol] 10.8 fL Normal 9.5-13.5 [facility] Comment on above: Performed By: #### C BC #### [facility] [address] [place] [address] Dr. Marguerite Lynn PLT 247 103/ul Normal 150-450 [facility] Comment on above: Performed By: #### C BC #### [facility] [address] [place] [address] Dr. Marguerite Lynn RBC 4.41 106/ul Normal 4.20-5.40 [facility] Comment on above: Performed By: #### C BC #### [facility] [address] [place] [address] Dr. Marguerite Lynn WBC 5.4 103/ul Normal 4.0-11.0 [facility] Comment on above: Performed By: #### C BC #### [facility] [address] [place] [address] Dr. Marguerite Lynn GLYCOHEMOGLOBIN A1Con 2022 ADA RECOMMENDATION SEE BELOW Normal [facility] Comment on above: Result Comment: ADA RECOMMENDED LIMIT 4.0 - 6.0 ADA THERAPEUTIC TARGET < 7.0 ACTION SUGGESTED > 7.0 Performed By: #### A 1C #### [facility] [address] [address] [address] Marguerite Lynn Glucose [Mass/Vol] 298 mg/dL Normal [facility] Comment on above: Performed By: #### A 1C #### [facility] [address] [place] [address] Dr. Marguerite Lynn HbA1c (Bld) [Mass fraction] 12.0 % Critically high 4.5-6.2 [facility] Comment on above: Performed By: #### A 1C #### [facility] [address] [place] [address] Dr. Marguerite Lynn LIPID PROFILEon 10-14-2022 CHOL-HDL RATIO NORM SEE BELOW Normal [facility] Comment on above: Result Comment: 3.3 - 4.4 LOW RISK 4.4 - 7.1 AVERAGE RISK 7.1 - 11.0 MODERATE RISK >11.0 HIGH RISK Performed By: #### B MP, TSH, LIPID, URIC, LIVER #### [facility] [address] [place] [address] Dr. Marguerite Lynn Cholesterol [Mass/Vol] 282 mg/dL Critically high <=200 [facility] Comment on above: Performed By: #### B MP, TSH, LIPID, URIC, LIVER #### [facility] [address] [place] [address] Dr. Marguerite Lynn Cholesterol in HDL [Mass/Vol] 62 mg/dL Critically high 40-60 [facility] Comment on above: Performed By: #### B MP, TSH, LIPID, URIC, LIVER #### [facility] [address] [place] [address] Dr. Marguerite Lynn Cholesterol in LDL [Mass/Vol] 182.0 mg/dL Normal [facility] Comment on above: Performed By: #### B MP, TSH, LIPID, URIC, LIVER #### [facility] [address] [place], [place] [id number] Dr. Marguerite Lynn Cholesterol.total/C holesterol in HDL [Mass ratio] 4.5 {ratio} Normal [facility] Comment on above: Performed By: #### B MP, TSH, LIPID, URIC, LIVER #### [facility] [address] [address] [address] Marguerite Lynn HDL NORMAL > or = 60 mg/dl - LO W CARDIOVASCULAR RISK <40 mg/dl - HIGH CARDIOVASCULAR RISK Normal [facility] Comment on above: Performed By: #### B MP, TSH, LIPID, URIC, LIVER #### [facility] [address] [address] [address] Marguerite Lynn LDL CALC NORMAL SEE BELOW Normal [facility] Comment on above: Result Comment: <100 mg/dl OPTIMAL 100 - 129 mg/dl NEAR OR ABOVE OPTIMAL 130 - 159 mg/dl BORDERLINE HIGH 160 - 189 mg/dl HIGH >190 mg/dl VERY HIGH Performed By: #### B MP, TSH, LIPID, URIC, LIVER #### [facility] [address] [address] [address] Marguerite Lynn Triglyceride [Mass/Vol] 190 mg/dL Critically high <=150 [facility] Comment on above: Performed By: #### B MP, TSH, LIPID, URIC, LIVER #### [facility] [address] [place] [address] Dr. Marguerite Lynn VLDL CALC 38.0 mg/dL Normal [facility] Comment on above: Performed By: #### B MP, TSH, LIPID, URIC, LIVER #### [facility] [address] [place] [address] Dr. Marguerite Lynn LIVER PROFILEon 10-14-2022 Albumin [Mass/Vol] 3.6 g/dL Normal 3.4-5.0 [facility] Comment on above: Performed By: #### B MP, TSH, LIPID, URIC, LIVER #### [facility] [address] [place] [address] Dr. Marguerite Lynn Albumin/Globulin [Mass ratio] 0.8 {ratio} Normal [facility] Comment on above: Performed By: #### B MP, TSH, LIPID, URIC, LIVER #### [facility] [address] [place] [address] Dr. Marguerite Lynn ALP [Catalytic activity/Vol] 215 U/L Critically high 46-116 [facility] Comment on above: Performed By: #### B MP, TSH, LIPID, URIC, LIVER #### [facility] [address] [place] [address] Dr. Marguerite Lynn ALT [Catalytic activity/Vol] 23 U/L Normal 14-59 [facility] Comment on above: Performed By: #### B MP, TSH, LIPID, URIC, LIVER #### [facility] [address] [place] [address] Dr. Marguerite Lynn AST [Catalytic activity/Vol] 10 U/L Critically low 15-37 [facility] Comment on above: Performed By: #### B MP, TSH, LIPID, URIC, LIVER #### [facility] [address] [place] [address] Dr. Marguerite Lynn BILI, CONJUGATED <0.1 Normal 0.0-0.2 [facility] Comment on above: Performed By: #### B MP, TSH, LIPID, URIC, LIVER #### [facility] [address] [place] [address] Dr. Marguerite Lynn Bilirubin [Mass/Vol] 0.2 mg/dL Normal 0.2-1.0 [facility] Comment on above: Performed By: #### B MP, TSH, LIPID, URIC, LIVER #### [facility] [address] [place] [address] Dr. Marguerite Lynn Globulin (S) [Mass/Vol] 4.3 g/dL Normal [facility] Comment on above: Performed By: #### B MP, TSH, LIPID, URIC, LIVER #### [facility] [address] [place] [address] Dr. Marguerite Lynn Protein [Mass/Vol] 7.9 g/dL Normal 6.4-8.2 [facility] Comment on above: Performed By: #### B MP, TSH, LIPID, URIC, LIVER #### [facility] [address] [place] [address] Dr. Marguerite Lynn PROF CHEM 8 (BAS METB)on Anion gap [Moles/Vol] 12.8 mmol/L Normal [facility] Comment on above: Performed By: #### B MP, TSH, LIPID, URIC, LIVER #### [facility] [address] [place] [address] Dr. Marguerite Lynn Calcium [Mass/Vol] 9.2 mg/dL Normal 8.5-10.1 [facility] Comment on above: Performed By: #### B MP, TSH, LIPID, URIC, LIVER #### [facility] [address] [place] [address] Dr. Marguerite Lynn Chloride [Moles/Vol] 102 mmol/L Normal 98-107 [facility] Comment on above: Performed By: #### B MP, TSH, LIPID, URIC, LIVER #### [facility] [address] [place] [address] Dr. Marguerite Lynn CO2 [Moles/Vol] 30.2 mmol/L Normal 21.0-32.0 [facility] Comment on above: Performed By: #### B MP, TSH, LIPID, URIC, LIVER #### [facility] [address] [place] [address] Dr. Marguerite Lynn Creatinine [Mass/Vol] 1.00 mg/dL Normal 0.55-1.02 [facility] Comment on above: Performed By: #### B MP, TSH, LIPID, URIC, LIVER #### [facility] [address] [place] [address] Dr. Marguerite Lynn EGFR-AF INDONESIAN >60 Normal >=60 [facility] Comment on above: Performed By: #### B MP, TSH, LIPID, URIC, LIVER #### [facility] [address] [place] [address] Dr. Marguerite Lynn EGFR-NON AF INDONESIAN 58 mL/min/1.73m2 Critically low >=60 [facility] Comment on above: Performed By: #### B MP, TSH, LIPID, URIC, LIVER #### [facility] [address] [place] [address] Dr. Marguerite Lynn Glucose [Mass/Vol] 330 mg/dL Critically high 74-106 [facility] Comment on above: Performed By: #### B MP, TSH, LIPID, URIC, LIVER #### [facility] [address] [place] [address] Dr. Marguerite Lynn Potassium [Moles/Vol] 4.0 mmol/L Normal 3.5-5.1 [facility] Comment on above: Performed By: #### B MP, TSH, LIPID, URIC, LIVER #### [facility] [address] [address] [address] Marguerite Lynn Sodium [Moles/Vol] 141 mmol/L Normal 136-145 [facility] Comment on above: Performed By: #### B MP, TSH, LIPID, URIC, LIVER #### [facility] [address] [place] [address] Dr. Marguerite Lynn Urea nitrogen [Mass/Vol] 14.0 mg/dL Normal 7.0-18.0 [facility] Comment on above: Performed By: #### B MP, TSH, LIPID, URIC, LIVER #### [facility] [address] [place] [address] Dr. Marguerite Lynn Urea nitrogen/Creatinine [Mass ratio] 14.0 mg/mg Normal [facility] Comment on above: Performed By: #### B MP, TSH, LIPID, URIC, LIVER #### [facility] [address] [place] [address] Dr. Marguerite Lynn TSHon 10-14-2022 TSH 1.140 uIU/mL Normal 0.358-3.[address] [facility] Comment on above: Performed By: #### B MP, TSH, LIPID, URIC, LIVER #### [facility] [address] [place] [address] Dr. Marguerite Lynn URIC ACID SERUMon 10-14-2022 Urate [Mass/Vol] 5.0 mg/dL Normal 2.6-6.0 [facility] Comment on above: Performed By: #### B MP, TSH, LIPID, URIC, LIVER #### [facility] [address] [place] [address] Dr. Marguerite Lynn XR ANKLE RT MIN [...] by: NORIS MEDINA Date: 2022-10-14 16:36 [facility] HNO ID: [id number] Author: RT Chuy(R) Service: ? Author Type: [...] March 31, 2021 TIME: 1:48 PM Normal [facility] MRI FEMALE PELVIS WO/W IVCON on 03-31-2021 MRI FEMALE PELVIS WO/W IVCON * * *Final Report* * * DATE OF EXAM: Mar 31 2021 3:19PM [facility] 0713 - MRI FEMALE PELVIS WO/W IVCON [...] ASCITES, LESS LIKELY THINLY SEPTATED OVARIAN CYST. Mmd Unit Teacher: ERICKSON Transcribe Date/Time: Mar 31 2021 4:38P Dictated by : NORIS CABALLERO MD This examination was interpreted and the report reviewed and electronically signed by: NORIS CABALLERO MD on Mar 31 2021 5:29PM EST [id number] Normal [facility] CT ABD/PEL W IVCONon 12-06- 021 [facility] No Panel Informationon 11-12 [facility] APTTon 09-28-2018 aPTT Coag (Bld) [Time] 28 s Normal 28 - 38 [facility] Comment on above: Result Comment: THE APTT IS NO LONGER USED FOR MONITORING UNFRACTIONATED HEPARIN THERAPY. FOR MONITORING HEPARIN THERAPY, USE THE HEPARIN ASSAY. Performed By: #### A PTT #### [address] [address] CBC AND DIFFERENTIALon 09-28 % AUTOMATED IMMATURE GRAN 0.2 % Normal 0.0 - 0.9 [facility] Comment on above: Result Comment: Perc ent differential counts (%) should be interpreted in the context of the absolute cell counts (cells/L). Performed By: #### C BCDF #### [address] [address] Basophils (Bld) [#/Vol] 0.04 10*3/uL Normal 0.00 - 0.10 [facility] Comment on above: Performed By: #### C BCDF #### [address] [address] Basophils/100 WBC (Bld) 0.9 % Normal 0.0 - 2.0 [facility] Comment on above: Performed By: #### C BCDF #### [address] [address] Eosinophils (Bld) [#/Vol] 0.12 10*3/uL Normal 0.00 - 0.70 [facility] Comment on above: Performed By: #### C BCDF #### [address] [address] Eosinophils/100 WBC (Bld) 2.6 % Normal 0.0 - 6.0 [facility] Comment on above: Performed By: #### C BCDF #### [address] [address] Erythrocyte distribution width (RBC) [Ratio] 15.0 % High 11.5 - 14.5 [facility] Comment on above: Performed By: #### C BCDF #### [address] [address] Hematocrit (Bld) [Volume fraction] 38.5 % Normal 36.0 - 46.0 [facility] Comment on above: Performed By: #### C BCDF #### [address] [address] Hemoglobin (Bld) [Mass/Vol] 12.5 g/dL Normal 12.0 - 16.0 [facility] Comment on above: Performed By: #### C BCDF #### [address] [address] Lymphocytes (Bld) [#/Vol] 1.64 10*3/uL Normal 1.20 - 4.80 [facility] Comment on above: Performed By: #### C BCDF #### [address] [address] Lymphocytes/100 WBC (Bld) 35.3 % Normal 13.0 - 44.0 [facility] Comment on above: Performed By: #### C BCDF #### [address] [address] MCHC (RBC) [Mass/Vol] 32.5 g/dL Normal 32.0 - 36.0 [facility] Comment on above: Performed By: #### C BCDF #### [address] [address] MCV (RBC) [Entitic vol] 89 fL Normal 80 - 100 [facility] Comment on above: Performed By: #### C BCDF #### [address] [address] Monocytes (Bld) [#/Vol] 0.50 10*3/uL Normal 0.10 - 1.00 [facility] Comment on above: Performed By: #### C BCDF #### [address] [address] Monocytes/100 WBC (Bld) 10.8 % Normal 2.0 - 10.0 [facility] Comment on above: Performed By: #### C BCDF #### [address] [address] Neutrophils (Bld) [#/Vol] 2.34 10*3/uL Normal 1.20 - 7.70 [facility] Comment on above: Performed By: #### C BCDF #### [address] [address] Neutrophils/100 WBC (Bld) 50.2 % Normal 40.0 - 80.0 [facility] Comment on above: Performed By: #### C BCDF #### [address] [address] Platelets (Bld) [#/Vol] 233 10*3/uL Normal 150 - 450 [facility] Comment on above: Performed By: #### C BCDF #### [address] [address] RBC (Bld) [#/Vol] 4.32 x10E12/L Normal 4.00 - 5.20 [facility] Comment on above: Performed By: #### C BCDF #### [address] [address] WBC (Bld) [#/Vol] 4.7 10*3/uL Normal 4.4 - 11.3 [facility] Comment on above: Performed By: #### C BCDF #### [address] [address] COMPREHENSIVE PANELon 2018 Albumin [Mass/Vol] 4.0 g/dL Normal 3.4 - 5.0 [facility] Comment on above: Performed By: #### C MP #### [address] [address] ALP [Catalytic activity/Vol] 107 U/L Normal 33 - 110 [facility] Comment on above: Performed By: #### C MP #### [address] [address] ALT [Catalytic activity/Vol] 10 U/L Normal 7 - 45 [facility] Comment on above: Result Comment: June ents treated with Sulfasalazine may generate falsely decreased results for ALT. Performed By: #### C MP #### [address] [address] Anion gap [Moles/Vol] 10 mmol/L Normal 10 - 20 [facility] Comment on above: Performed By: #### C MP #### [address] [address] AST [Catalytic activity/Vol] 15 U/L Normal 9 - 39 [facility] Comment on above: Performed By: #### C MP #### [address] [address] Bilirubin [Mass/Vol] 0.3 mg/dL Normal 0.0 - 1.2 [facility] Comment on above: Performed By: #### C MP #### [address] [address] Calcium [Mass/Vol] 9.0 mg/dL Normal 8.6 - 10.3 [facility] Comment on above: Performed By: #### C MP #### [address] [address] Chloride [Moles/Vol] 107 mmol/L Normal 98 - 107 [facility] Comment on above: Performed By: #### C MP #### [address] [address] Creatinine [Mass/Vol] 0.92 mg/dL Normal 0.50 - 1.05 [facility] Comment on above: Performed By: #### C MP #### [address] [address] GFR- AM. >60 Normal >60 [facility] Comment on above: Result Comment: CALC ULATIONS OF ESTIMATED GFR ARE PERFORMED USING THE MDRD STUDY EQUATION FOR THE IDMS-TRACEABLE CREATININE METHODS. CLIN CHEM 2007;53:766-72 Performed By: #### C MP #### [address] [address] GFR-NON AM. >60 Normal >60 [facility] Comment on above: Performed By: #### C MP #### [address] [address] Glucose [Mass/Vol] 117 mg/dL High 74 - 99 [facility] Comment on above: Performed By: #### C MP #### [address] [address] HCO3 (Bld) [Moles/Vol] 26 mmol/L Normal 21 - 32 [facility] Comment on above: Performed By: #### C MP #### [address] [address] Potassium [Moles/Vol] 4.0 mmol/L Normal 3.5 - 5.3 [facility] Comment on above: Performed By: #### C MP #### [address] [address] Protein [Mass/Vol] 7.2 g/dL Normal 6.4 - 8.2 [facility] Comment on above: Performed By: #### C MP #### [address] [address] Sodium [Moles/Vol] 139 mmol/L Normal 136 - 145 [facility] Comment on above: Performed By: #### C MP #### [address] [address] Urea nitrogen [Mass/Vol] 17 mg/dL Normal 6 - 23 [facility] Comment on above: Performed By: #### C MP #### [address] [address] HCG,SERUM QUALITATIVEon 05-0 HCG,SERUM QUALITATIVE Negative Normal Negative [facility] Comment on above: Performed By: #### H CGS #### [address] [address] Operative Reports - [facility] 09-28-2018 Operative Reports - [place] PREOPERATIVE DIAGNOSIS: Left knee medial meniscus tear. POSTOPERATIVE DIAGNOSIS: Left knee medial meniscus tear. PROCEDURE: Right knee medial meniscectomy 20%. UNIX MANAGER: DEANA Fitzpatrick PA was present throughout the entire case. Given the nature of the disease process and the procedure, a skilled surgical dressing maker was necessary during the case. The assistant head cashier was necessary to hold retractors and manipulate the extremity during the procedure. A certified dialysis technician was at the back table managing the [...] Damon Og MD EST EST DICTATION NUMBER: [id number] INTERNAL JOB NUMBER: [id number] CC: PARIS BOYKIN Electronic Signatures: Damon Og) (Signed on 06-Oct-2018 12:09) Authored Unsigned, Draft (SYS GENERATED) (Entered on 30-Sep-2018 07:51) Entered Last Updated: 06-Oct-2018 12:09 by Damon Og) [facility] PT/INRon 09-28-2018 INR Coag (PPP) [Relative time] 0.9 {INR} Normal 0.9 - 1.1 [facility] Comment on above: Performed By: #### P TINR #### [facility] [address] [place] [address] PT Coag (PPP) [Time] 10.0 s Normal 9.7 - 12.7 [facility] Comment on above: Performed By: #### P TINR #### [facility] [address] [place] [address] Preop Checkliston 09-28-2018 Preop Checklist Preop Checklist: Preop Checklist: Arrival [id number] Arrival Time05:58 NPO [id number] 23:00 ID Band Onyes Allergy Bandno known [...] 06:52 by Dinora Rajput (BISHOP) Normal [facility] Patient Profile - Preop v2on 09-27-2018 Patient Profile - Preop v2 Profile: Initial Info: How to be AddressedQueen Spoken Language PreferredEnglish Source of Informationpatient Are you currently using the Personal Electronic Health Record or Raumfeldevolsono Are you interested in learning more about [facility] for the management of your healthnot at this time Stated Reason for AdmissionLeft knee surgery Primary Contact Name and Bozena Gibson [phone] Patient Belongingsremains with patient Patient Belongings Remaining with Patientclothing Medications Brought to Hospitalno General Health: Weight in kg99.7 kilogram(s) Weight in vma556 pound(s) Weight Methodstated Scale Typestanding Height in [...] Lives Withadult child(isabelle) Living Arrangementshouse Anticipated Transition [place] Substance: Current or Former Substance Use never: e-Cigarette/Vaping, Street Drugs YES: Cigarette/Tobacco, Alcohol Tobacco Cessation Education (provide if tobacco use within the last 12 mos) patient declined Other Tobacco Use Commentssmokes 2-3 cigarettes per day Alcohol Use Statuscurrent alcohol Alcohol Amount1-2 drinks Alcohol Frequency2-3 times/week Alcohol Typewine Alcohol Last Use09-27-18 1000 am Problems Related to Alcohol Useno [...] Learning Preferencesno preferences Cultural Considerationsnone Developmental Considerationsnone Gnosticist Considerationsnone Other learner availableno [place] RiskPatient location auto qualifies him/her for HIGH RISK. Are there any cultural, spiritual, congregation practices/values/needs that are important for us to knowno Pain Scalenumerical 0-10 Pain Scale Educationteaching provided Current Pain Level4 = Moderate Acceptable Pain Level4 = Moderate Expression of Pain (nonverbal)none Lifestyle Changes/Adaptations in Response to Painno change Barriers to Reporting Painnone Chronic Painno Information Review: Allergies, Home Meds and Significant Events have been Reviewed and Verified with Patient/Familyyes Electronic Signatures: Genie Joregnsen (BISHOP) (Signed 27-Sep-2018 13:33) Authored: Dinora Blas) (Signed 28-Sep-2018 06:57) Authored: Dm, Additional Information Last Updated: 28-Sep-2018 06:57 by Dinora Rajput) Normal [facility] MRI KNEE LEFT WO CONTRASTon 09-16-2018 [...] Nas Rodriguez DO 09/17/[address] [facility] Microbiology Studieson 09-02 Gardnerella vaginalis Gardnerella vaginalis [place] [facility] Studieson 018 A. vaginae DNA PADMA+probe Ql (Vag fld) High - 2 Score Abnormal [facility] Bacterial vaginosis associated bacterium 2 DNA PADMA+probe Ql (Vag fld) High - 2 Score Abnormal [facility] Zenia albicans (PADMA) Negative [facility] Zenia glabrata (PADMA) Negative [facility] Comment on above: This test was develo ped and its performance characteristics determined by [facility]. It has not been cleared or approved by the Food and Drug Administration. The FDA has determined that such clearance or approval is not necessary. Chlamydia trachomatis (PADMA) (LAB) Negative [place] Herpes Simplex Virus I DNA (PCR) Negative [place] Herpes Simplex Virus II DNA (PCR) Negative [facility] Comment on above: Performed at: [employer] [address] [id number] Apparatus Cleaner: Jeremy Soto MD, Phone: [phone] Megasphaera sp type 1 DNA PADMA+probe Ql (Vag fld) High - 2 Score Abnormal [facility] Comment on above: Calculate total scor e [...] developed and its performance characteristics determined by [facility]. It has not been cleared or approved by the Food and Drug Administration. The FDA has determined that such clearance or approval is not necessary. N. gonorrhoeae DNA PADMA+probe Ql (Unsp spec) Negative [place] Comment on above: Performed at: [employer] [id number] Apparatus Cleaner: Jeremy Soto MD, Phone: [phone] Trichomonas vaginalis (PADMA) Negative [place] Studieson 017 Basophils (Bld) [#/Vol] 0.1 10*3/uL 0.0-0.2 [facility] Basophils/100 WBC (Bld) 1.0 % [facility] Chloride [Moles/Vol] 102 mmol/L 95-114 [place] CO2 [Moles/Vol] 28.5 mmol/L 22.0-30.[address] [facility] Creatinine [Mass/Vol] 0.82 mg/dL 0.44-1.03 [facility] Eosinophils (Bld) [#/Vol] 0.10 10*3/uL 0.0-0.45 [facility] Eosinophils/100 WBC (Bld) 1.2 % [facility] Erythrocyte distribution width (RBC) [Ratio] 14.9 % 11.9-15.3 [facility] Estimated GFR (Non- > 60 [facility] GFR/1.73 sq M.predicted MDRD (S/P/Bld) [Vol rate/Area] mL/min/{1.73_m2} [facility] Comment on above: GFR estimated refere nce range: According to KDOQI guidelines, <60 ml/min/1.73m2 is sufficient to diagnose a patient with chronic kidney disease. Hematocrit (Bld) [Volume fraction] 39.1 % 34.0-46.4 [facility] Hemoglobin (Bld) [Mass/Vol] 13.1 g/dL 11.8-15.4 [facility] Lymphocytes (Bld) [#/Vol] 2.1 10*3/uL 1.00-4.8 [facility] Lymphocytes/100 WBC (Bld) 36.0 % [facility] MCH (RBC) [Entitic mass] 29.5 pg 24.7-34.3 [facility] MCHC (RBC) [Mass/Vol] 33.5 g/dL 32.0-35.0 [facility] MCV (RBC) [Entitic vol] 88.1 fL 80-100 [facility] Monocytes (Bld) [#/Vol] 0.6 10*3/uL 0.0-0.8 [facility] Monocytes/100 WBC (Bld) 10.0 % [facility] Neutrophils (Bld) [#/Vol] 3.0 10*3/uL 1.8-7.7 [facility] Neutrophils/100 WBC (Bld) 51.8 % [facility] Platelet mean volume (Bld) [Entitic vol] 8.8 fL 6.3-10.7 [facility] Platelets (Bld) [#/Vol] 240 10*3/uL 150-450 [facility] Potassium [Moles/Vol] 3.9 mmol/L 3.5-5.1 [place] RBC (Bld) [#/Vol] 4.43 10*6/uL 3.60-5.00 [facility] Sodium [Moles/Vol] 138 mmol/L 136-146 [facility] Urea nitrogen [Mass/Vol] 10 mg/dL 9-23 [place] WBC (Bld) [#/Vol] 5.7 10*3/uL 3.8-11.6 [facility] Vital Signs Date Time Vital Sign Value Performing Clinician Facility 08-28-2024 08:26-0400 Body height 162.6 cm Boo Bey MD Work Phone: [facility] 08-28-2024 08:26-0400 Body mass index (BMI) [Ratio] 38.62 kg/m2 Boo Bey MD Work Phone: [facility] 08-28-2024 08:26-0400 Body temperature 97.3 [degF] Boo Bey MD Work Phone: [facility] 08-28-2024 08:26-0400 Body weight 102.06 kg Boo Bey MD Work Phone: [facility] 08-28-2024 08:26-0400 Diastolic blood pressure 84 mm[Hg] Boo Bey MD Work Phone: [facility] 08-28-2024 08:26-0400 Heart rate 85 /min Boo Bey MD Work Phone: [facility] 08-28-2024 08:26-0400 Respiratory rate 20 /min Boo Bey MD Work Phone: [facility] 08-28-2024 08:26-0400 SaO2% (BldA) [Mass fraction] 97 % Boo Bey MD Work Phone: [facility] 08-28-2024 08:26-0400 Systolic blood pressure 146 mm[Hg] Boo Bey MD Work Phone: [facility] 06-08-2024 15:33-0500 Body mass index (BMI) [Ratio] 41.81 kg/m2 Boo Bey MD Work Phone: [facility] 06-08-2024 15:33-0500 Body temperature 98.29 [degF] Boo Bey MD Work Phone: [facility] 06-08-2024 15:33-0500 Body weight 110.5 kg Boo Bey MD Work Phone: [facility] 06-08-2024 15:33-0500 Diastolic blood pressure 98 mm[Hg] Boo Bey MD Work Phone: [facility] 06-08-2024 15:33-0500 Systolic blood pressure 140 mm[Hg] Boo Bey MD Work Phone: [facility] 05-29-2024 09:12-0500 Body height 162.6 cm Boo Bey MD Work Phone: [facility] 05-29-2024 09:12-0500 Body mass index (BMI) [Ratio] 41.2 kg/m2 Boo Bey MD Work Phone: [facility] 05-29-2024 09:12-0500 Body temperature 97.5 [degF] Boo Bey MD Work Phone: [facility] 05-29-2024 09:12-0500 Body weight 108.86 kg Boo Bey MD Work Phone: [facility] 05-29-2024 09:12-0500 Diastolic blood pressure 90 mm[Hg] Boo Bey MD Work Phone: [facility] 05-29-2024 09:12-0500 Heart rate 88 /min Boo Bey MD Work Phone: [facility] 05-29-2024 09:12-0500 Respiratory rate 20 /min Boo Bey MD Work Phone: [facility] 05-29-2024 09:12-0500 SaO2% (BldA) [Mass fraction] 98 % Boo Bey MD Work Phone: [facility] 05-29-2024 09:12-0500 Systolic blood pressure 160 mm[Hg] Boo Bey MD Work Phone: [facility] 03-21-2024 13:56-0400 Body height 162.6 cm Boo Bey MD Work Phone: [facility] 03-21-2024 13:56-0400 Body mass index (BMI) [Ratio] 40.1 kg/m2 Boo Bey MD Work Phone: [facility] 03-21-2024 13:56-0400 Body temperature 97.3 [degF] Boo Bey MD Work Phone: [facility] 03-21-2024 13:56-0400 Body weight 105.96 kg Boo Bey MD Work Phone: [facility] 03-21-2024 13:56-0400 Diastolic blood pressure 100 mm[Hg] Boo Bey MD Work Phone: [facility] 03-21-2024 13:56-0400 Heart rate 100 /min Boo Bey MD Work Phone: [facility] 03-21-2024 13:56-0400 SaO2% (BldA) [Mass fraction] 100 % Boo Bey MD Work Phone: [facility] 03-21-2024 13:56-0400 Systolic blood pressure 160 mm[Hg] Boo Bey MD Work Phone: [facility] NEGATED: Highlighted row BMI (Body Mass Index) Damon [facility] NEGATED: Highlighted row Body Temperature Damon [facility] NEGATED: Highlighted row Body weight Damon [facility] NEGATED: Highlighted row BP Diastolic Damon [facility] NEGATED: Highlighted row BP Systolic Damon [facility] NEGATED: Highlighted row Height Damon [facility] NEGATED: Highlighted row Pulse (Heart Rate) Damon [facility] NEGATED: Highlighted row Pulse Oximetry Damon [facility] NEGATED: Highlighted row Respiratory Rate Damon [facility] Encounters Encounter Date Encounter Type Care Provider Facility Start: 08-28-2024 End: 08-28-2024 Bamboo flowsheet Boo Bey MD Work Phone: [facility] Start: 08-28-2024 End: 08-28-2024 Rosemarie flowsheet Boo Bey MD Work Phone: [facility] Start: 08-28-2024 End: 08-28-2024 Office outpatient visit 25 minutes Boo Bey MD Work Phone: [facility] Comment on above: Type 2 diabetes rafaela itus with hyperglycemia, without long-term current use of insulin ([facility]) (Primary Dx); Hypertension, essential ([facility]); Bilateral primary osteoarthritis of knee; Chronic pain of right ankle; Class 2 severe obesity due to excess calories with serious comorbidity and body mass index (BMI) of 38.0 to 38.9 in adult ([facility]); Possible exposure to STD; Type 2 diabetes mellitus with other specified complication ([facility]); Hyperlipidemia, unspecified ([facility]) Start: 08-28-2024 End: 08-28-2024 ambulatory BOO BEY Not Available Start: 06-08-2024 End: 06-08-2024 Office outpatient visit 15 minutes Boo Bey MD Work Phone: [facility] Comment on above: Acute bronchitis due to other specified organisms (Primary Dx); Class 3 severe obesity due to excess calories with serious comorbidity and body mass index (BMI) of 40.0 to 44.9 in adult ([facility]) Start: 06-08-2024 End: 06-08-2024 ambulatory BOO BEY Not Available Start: 06-08-2024 End: 06-08-2024 Bamboo flowsheet Boo Bey MD Work Phone: [facility] Start: 06-08-2024 End: 06-08-2024 Bamboo flowsheet Boo Bey MD Work Phone: [facility] Start: 05-29-2024 End: 05-29-2024 Bamboo flowsheet Boo Bey MD Work Phone: [facility] Start: 05-29-2024 End: 05-29-2024 Bamboo flowsheet Boo Bey MD Work Phone: [facility] Start: 05-29-2024 End: 05-29-2024 Office outpatient visit 25 minutes Boo Bey MD Work Phone: [facility] Comment on above: Type 2 diabetes rafaela itus with hyperglycemia, without long-term current use of insulin (CMS/HCC) (Primary Dx); Hypertension, essential (CMS/HCC); Viral gastroenteritis; Bilateral primary osteoarthritis of knee; Chronic pain of right ankle Start: 05-29-2024 End: 05-29-2024 ambulatory BOO BEY Not Available Start: 05-04-2024 End: 05-04-2024 Refill Boo Bey MD Work Phone: [facility] Comment on above: Chronic pain of righ t ankle Start: 04-05-2024 End: 04-05-2024 Refill Boo Bey MD Work Phone: [facility] Comment on above: Type 2 diabetes rafaela itus with hyperglycemia, without long-term current use of insulin (CMS/HCC); Benign hypertension (CMS/HCC) Start: 03-24-2024 End: 03-24-2024 Clinisync Result Encounter Boo Bey MD Work Phone: [facility] External Department Unsolicited Start: 03-24-2024 End: 03-24-2024 Clinisync Result Encounter Boo Bey MD Work Phone: [facility] External Department Unsolicited Start: 03-21-2024 End: 03-21-2024 Bamboo flowsheet Boo Bey MD Work Phone: [facility] Start: 03-21-2024 End: 03-21-2024 Bamboo flowsheet Boo Bey MD Work Phone: [facility] Start: 03-21-2024 End: 03-21-2024 Office outpatient visit 25 minutes Boo Bey MD Work Phone: [facility] Comment on above: Type 2 diabetes rafaela itus with hyperglycemia, without long-term current use of insulin (CMS/HCC) (Primary Dx); Hypertension, essential (CMS/[facility]); Bilateral primary osteoarthritis of knee; Chronic pain of right ankle; Dyslipidemia (CMS/[facility]); Class 3 severe obesity due to excess calories with serious comorbidity and body mass index (BMI) of 40.0 to 44.9 in adult (CMS/[facility]); Breast cancer screening by mammogram; Annual physical exam; Type 2 diabetes mellitus with other specified complication ([facility]) Start: 03-21-2024 End: 03-21-2024 Patient encounter procedure Boo Bey MD Work Phone: [facility] Healthcare Start: 03-21-2024 End: 03-21-2024 ambulatory BOO BEY Not Available Start: 03-15-2024 End: 03-15-2024 Orders Only Boo Bey MD Work Phone: [facility] Comment on above: Chronic pain of righ t ankle (Primary Dx) Start: 07-07-2023 Refill Boo Whitmore Work Phone: [facility] Comment on above: Arthritis of ankle ( Primary Dx) Start: 02-10-2023 ambulatory Shi Trinidad MD Work Phone: [facility] [place] Start: 10-21-2022 End: 10-22-[address] BOO BEY Facility: Start: 10-20-2022 End: 10-21-[address] BOO BEY Facility:[facility] Start: 10-17-2022 Encounter for genera l adult medical examination without abnormal findings DR BOO BEY [facility] Start: 10-14-2022 End: 10-15-[address] BOO BEY Facility:[facility] Start: 10-14-2022 End: 10-15-2022 Encounter for general adult medical examination without abnormal findings DR BOO BEY Facility:[facility] Start: 03-04-2022 ambulatory Shi Trinidad MD Work Phone: [facility] [place] Start: 01-08-2022 Telephone encounter Shi Mcclain i, MD Work Phone: [facility] [place] Comment on above: ER F/U Start: 12-06-2020 End: 12-06-2020 Subsequent hospital visit by physician [facility] Comment on above: Left lower quadrant abdominal mass [R19.04] Start: 11-12-2020 End: 11-12-2020 Subsequent hospital visit by physician [facility] Comment on above: Left hip pain [M25.5 52] Start: 12-21-2018 End: 12-21-2018 Discharged Recurring Damon [facility] Start: 09-16-2018 End: 09-19-2018 Patient encounter procedure ALEKSEY [place] [facility] Start: 08-30-2017 End: 08-30-2017 Departed Referred Damon [facility] Start: 10-21-2016 End: 10-22-2016 Discharged Recurring Damon [facility] Start: 09-24-2016 End: 09-24-2016 Admission to day surgery Damon [facility] Start: 09-17-2016 End: 09-17-2016 Patient encounter procedure Damon [facility] Start: 04-20-2014 End: 04-20-2014 Patient encounter procedure Damon [facility] Start: 09-27-2013 End: 09-27-2013 [facility] Start: 09-20-2013 End: 09-20-2013 [facility] Start: 01-23-2013 End: 01-23-2013 [facility] Start: 01-17-2013 End: 01-17-2013 [facility] Start: 10-09-2011 End: 10-09-2011 [facility] Start: 11-20-2010 End: 11-20-2010 [facility] Start: 06-19-2010 End: 06-19-2010 [facility] Start: 08-15-2007 End: 08-15-2007 [facility] Start: 07-02-2006 End: 07-02-2006 [facility] Start: 08-03-2005 End: 08-03-2005 [facility] Start: 12-26-2004 End: 12-26-2004 [facility] Start: 08-01-2004 End: 08-01-2004 [facility] Start: 07-16-2004 End: 07-16-2004 [facility] Start: 02-03-2003 End: 02-03-2003 [facility] Start: 01-20-2003 End: 01-28-2003 Discharged Recurring Damon [facility] Start: 08-09-2002 End: 08-09-2002 Patient encounter procedure Damon [facility] Start: 07-05-2001 End: 07-05-2001 [facility] Start: 06-10-2001 End: 06-10-2001 Patient encounter procedure Damon [facility] Start: 10-06-2000 End: 10-06-2000 Emergency department patient visit Damon Og [facility] Start: 01-09-2000 End: 01-09-2000 Emergency department patient visit Damon [facility] Start: 01-08-2000 End: 01-29-2000 Discharged Recurring Damon [facility] Start: 09-19-1999 End: 09-19-1999 Emergency department patient visit Damon [facility] Start: 09-19-1999 End: 09-28-1999 Discharged Recurring Damon Og [facility] Start: 06-25-1993 End: 06-25-1993 Emergency department patient visit Damon [facility] Start: 10-23-1992 End: 10-23-1992 Emergency department patient visit Damon Og [facility] Start: 08-09-1992 End: 08-09-1992 Emergency department patient visit Damon Og [facility] Start: 07-26-1992 End: 07-26-1992 Emergency department patient visit Damon Og [facility] Start: 06-23-1991 End: 06-23-1991 Emergency department patient visit Damon Og [facility] Start: 06-17-1991 End: 06-17-1991 Emergency department patient visit Damon [facility] Start: 06-07-1991 End: 06-07-1991 Emergency department patient visit Damon [facility] Start: 03-16-1991 End: 03-16-1991 Emergency department patient visit Damon [facility] Start: 01-22-1988 End: 01-22-1988 Departed Referred Damon [facility] Procedures Date Procedure Procedure Detail Performing Clinician Start: 03-26-2024 Mammography Boo mendoza MD Work Phone: Start: 03-24-2024 MLR HEMOGLOBIN A1C Boo Bey MD Work Phone: Start: 01-23-2021 Mammography Shi Mcclain i, MD Work Phone: Start: 01-09-2021 Colonoscopy Shi Mcclain i, MD Work Phone: Start: 12-06-2020 Ct abdomen & pelvis w/contrast material Avivalita Walker [employer].STAFF ACCOUNTANT Work Phone: Start: 11-12-2020 Radex hip unilateral with pelvis 2-3 views Aviva Walker NATURAL GAS INSPECTOR.STAFF ACCOUNTANT Work Phone: Start: 11-12-2020 Lipid 1996 panel - S rach or Plasma Shi Trinidad MD Work Phone: Start: 12-13-2019 Adult depression scr eening assessment Shi Trinidad MD Work Phone: Start: 09-16-2018 Mri any jt lower ext rem w/o contrast matrl ALEKSEY ROSARIO Start: 08-30-2017 Aerobic microbial culture Damon Og Start: 08-30-2017 Anaerobic microbial culture Damon Og Start: 08-30-2017 Bacteria identificat ion test Damon Og Plan of Treatment Date Care Activity Detail Author Start: 01-09-2031 Screening for malign ant neoplasm of colon [facility] Start: 03-11-2028 Urine microalbumin profile [facility] Start: 11-12-2025 Lipid 1996 panel - S rach or Plasma Lipid Screening [facility] Start: 11-12-2025 LIPID SCREEN LIPID SCREEN [facility] Start: 03-26-2025 Screening for malign ant neoplasm of breast Mammogram [facility] Start: 03-24-2025 Urine screening for protein Diabetes: Urine Protein Screening [facility] Start: 11-29-2024 End: 11-29-2024 Patient encounter procedure 11/29/2024 8:15 AM EDT Office Visit [facility] [address] [place] [address] Boo Bey MD [address] [place] [id number] [facility] Start: 09-22-2024 Hemoglobin A1c measurement Diabetes: Hemoglobin A1C [facility] Start: 08-28-2024 End: 08-28-2025 Hemoglobin A1c/Hemoglobin.total in Blood Hemoglobin A1c Lab Routine Type 2 diabetes mellitus with hyperglycemia, without long-term current use of insulin ([facility]) Expected: 08/28/2024 (Approximate), Expires: 08/28/2025 [facility] Work Phone: Comment on above: Expected: 08/28/2024 (Approximate), Expires: 08/28/2025 Start: 08-28-2024 End: 08-28-2025 Hepatitis 1996 panel - Serum Hepatitis panel, acute Lab Routine Possible exposure to STD Expected: 08/28/2024 (Approximate), Expires: 08/28/2025 [facility] Comment on above: Expected: 08/28/2024 (Approximate), Expires: 08/28/2025 Start: 08-28-2024 End: 08-28-2025 HIV-1/HIV-2 antigen/antibody combination immunoassay HIV 1/2 antibodies, rapid Lab Routine Possible exposure to STD Expected: 08/28/2024 (Approximate), Expires: 08/28/2025 [facility] Comment on above: Expected: 08/28/2024 (Approximate), Expires: 08/28/2025 Start: 08-28-2024 End: 08-28-2025 Reagin Ab [Presence] in Serum by RPR RPR Lab Routine Possible exposure to STD Expected: 08/28/2024 (Approximate), Expires: 08/28/2025 [facility] Comment on above: Expected: 08/28/2024 (Approximate), Expires: 08/28/2025 Start: 08-28-2024 End: 08-28-2024 Patient encounter procedure [facility] Comment on above: Arrived Start: 06-08-2024 End: 06-08-2024 Patient encounter procedure 06/08/2024 3:30 PM EST Office Visit [facility] [address] [place] [address] Boo Bey MD [address] [place] [address] Arrived [facility] Comment on above: Arrived Start: 05-29-2024 End: 05-29-2024 Patient encounter procedure [facility] Comment on above: Arrived Start: 03-21-2024 End: 03-21-2025 Albumin, urine, random Albumin, urine, random Lab Routine Type 2 diabetes mellitus with hyperglycemia, without long-term current use of insulin ([facility]) Expected: 03/21/2024 (Approximate), Expires: 03/21/2025 [facility] Work Phone: Comment on above: Expected: 03/21/2024 (Approximate), Expires: 03/21/2025 Start: 03-21-2024 End: 03-21-2025 Basic metabolic 1998 panel - Serum or Plasma Basic metabolic panel Lab Routine Annual physical exam Expected: 03/21/2024 (Approximate), Expires: 03/21/2025 [facility] Comment on above: Expected: 03/21/2024 (Approximate), Expires: 03/21/2025 Start: 03-21-2024 End: 03-21-2025 CBC W Auto Differential panel - Blood CBC and differential Lab Routine Annual physical exam Expected: 03/21/2024 (Approximate), Expires: 03/21/2025 [facility] Comment on above: Expected: 03/21/2024 (Approximate), Expires: 03/21/2025 Start: 03-21-2024 End: 03-21-2025 Hemoglobin A1c/Hemoglobin.total in Blood Hemoglobin A1c Lab Routine Annual physical exam Expected: 03/21/2024 (Approximate), Expires: 03/21/2025 [facility] Comment on above: Expected: 03/21/2024 (Approximate), Expires: 03/21/2025 Start: 03-21-2024 End: 03-21-2025 Hepatic function 2000 panel - Serum or Plasma Hepatic function panel Lab Routine Annual physical exam Expected: 03/21/2024 (Approximate), Expires: 03/21/2025 [facility] Comment on above: Expected: 03/21/2024 (Approximate), Expires: 03/21/2025 Start: 03-21-2024 End: 03-21-2025 Lipid 1996 panel - Serum or Plasma Lipid panel Lab Routine Annual physical exam Expected: 03/21/2024 (Approximate), Expires: 03/21/2025 [facility] Comment on above: Expected: 03/21/2024 (Approximate), Expires: 03/21/2025 Start: 03-21-2024 End: 05-21-2025 MG Breast - bilateral Screening Bilateral screening mammogram Imaging Routine Breast cancer screening by mammogram Expected: 03/21/2024, Expires: 05/21/2025 [facility] Comment on above: Expected: 03/21/2024 , Expires: 05/21/2025 Start: 03-21-2024 End: 03-21-2025 Thyrotropin [Units/volume] in Serum or Plasma TSH Lab Routine Annual physical exam Expected: 03/21/2024 (Approximate), Expires: 03/21/2025 [facility] Comment on above: Expected: 03/21/2024 (Approximate), Expires: 03/21/2025 Start: 03-21-2024 End: 03-21-2024 Patient encounter procedure [facility] Comment on above: Arrived Start: 01-30-2024 Influenza vaccination Influenza Vacc ine (#1) [facility] Start: 11-13-2023 DIABETES SCREEN DIABETES SCREEN [facility] Start: 11-13-2023 Diabetes Screening Diabetes Screenin g [facility] Start: 07-12-2023 End: 07-12-2023 Patient encounter procedure 07/12/2023 8:30 AM EST Office Visit [facility] [address] [place] [address] Boo Bey MD [address] [place] [address] [facility] Start: 06-01-2023 HPV TESTING HPV TESTING [facility] Start: 06-01-2023 PAP TESTING PAP TESTING [facility] Start: 06-01-2023 Screening for malign ant neoplasm of cervix [facility] Start: 01-29-2023 Influenza vaccination C [facility] Start: 05-31-2022 [facility] Start: 01-29-2022 Influenza vaccination INFLUENZA (#1) [facility] Start: 01-23-2022 Mammography [facility] Start: 01-23-2022 Screening for malign ant neoplasm of breast Mammogram [facility] Start: 01-09-2022 Colonoscopy COLONOSCOPY [facility] Start: 01-09-2022 COLORECTAL CANCER SCREENING COLORECTAL CANCER SCREENING [facility] Start: 12-11-2021 ANNUAL PCP TEAM [employer] LIZZY DISEASE VISIT ANNUAL PCP TEAM CHRONIC DISEASE VISIT [facility] Start: 05-31-2021 DEPRESSION ASSESSMENT [facility] Start: 12-12-2020 Adult depression screening assessment DEPRESSION SCREENING [facility] Start: 03-11-2019 PNEUMOCOCCAL (2 - PCV) PNEUMOCOCCAL (2 - PCV) [facility] Start: 03-11-2019 Pneumococcal vaccination Pneum ococcal Vaccine (2 - PCV) [facility] Start: 2017 SHINGRIX VACCINE (1 of 2) SHINGRIX VACCINE (1 of 2) [facility] Start: 2012 COLOGUARD (FIT-DNA) COLOGUARD (FIT-D NA) [facility] Start: [address] COLONOGRAPHY [facility] Start: 2012 FECAL OCCULT BLOOD FECAL OCCULT BLOO D [facility] Start: 2012 SIGMOIDOSCOPY SIGMOIDOSCOPY [facility] Start: 2007 Screening for malign ant neoplasm of breast Mammogram [facility] Start: 1997 Screening for malign ant neoplasm of cervix [facility] Start: 1988 Screening for malign ant neoplasm of cervix Pap Smear [facility] Start: 1986 Urine screening for protein Diabetes: Urine Protein Screening [facility] Start: 1985 BP CONTROLLED (<130/80) BP CONTROLLE D (<130/80) [facility] Start: 1985 HEPATITIS C SCREENING HEPATITIS C SC EDE [facility] Start: 1985 HIV SCREENING HIV SCREENING [facility] Start: 1977 Glaucoma screening Diabetes: R etinopathy Screening [facility] Start: 1967 COVID-19 VACCINE (#1) COVID-19 VACCI NE (#1) [facility] Start: 1967 Hemoglobin A1c measurement Diabetes: Hemoglobin A1C [facility] Start: 1967 HEPATITIS B (1 of 3 - 3-dose series) HEPATITIS B (1 of 3 - 3-dose series) [facility] Start: 1967 Hepatitis B Vaccine (1 of 3 - 3-dose series) Hepatitis B Vaccine (1 of 3 - 3-dose series) [facility] Start: 1967 Screening for malign ant neoplasm of colon [facility] End: 03-11-2024 OBINNA SCREENING [facility]iology Routine Encounter for screening mammogram for breast cancer 1 Occurrences starting 02/10/2023 until 03/11/2024 [facility] Work Phone: Comment on above: 1 Occurrences starti ng 02/10/2023 until 03/11/2024 End: 04-03-2023 Screening mammography bi 2-view breast inc cad [facility] Routine Encounter for screening mammogram for breast cancer 1 Occurrences starting 03/04/2022 until 04/03/2023 [facility] Work Phone: Comment on above: 1 Occurrences starti ng 03/04/2022 until 04/03/2023 Immunizations Immunization Date Immunization Notes Care Provider Beth fernandez 03-11-2018 pneumococcal polysaccharide vaccine, 23 valent Shi Trinidad MD Work Phone: [facility] 03-11-2018 tetanus toxoid, redu rolando diphtheria toxoid, and acellular pertussis vaccine, adsorbed Shi Trinidad MD Work Phone: [facility] 03-11-2018 influenza virus vacc ine, unspecified formulation Shi Trinidad MD Work Phone: [facility] 10-23-2016 hepatitis A vaccine, pediatric/adolescent dosage, 2 dose schedule Shi Trinidad MD Work Phone: [facility] 10-23-2016 human papilloma viru s vaccine, quadrivalent Shi Trinidad MD Work Phone: [facility] 10-23-2016 meningococcal polysaccharide vaccine (MPSV4) Shi Trinidad MD Work Phone: [facility] 10-23-2016 poliovirus vaccine, inactivated Shi Trinidad MD Work Phone: [facility] Payers Date Payer Category Payer [facility] er [id number] 2017 Unknown [id number] 1967 Unknown [id number] 1967 Unknown [id number] 1967 Unknown [id number] 1967 Unknown [id number] 1967 Unknown [id number] 1967 Unknown [id number] 1967 Unknown [id number] 1967 Unknown [id number] 1959 Unknown [id number] Self-pay Unknown [id number] Social History Date Type Detail Facility Tobacco smoking stat [facility] Unknown if ever smoked [place] Start: 1965 Sex Assigned At Female [facility] Start: 03-11-2018 End: 03-21-2024 Tobacco smoking status NHIS Smokes tobacco daily [facility] History of tobacco use Cigarette Smoker C [facility] Start: 03-11-2018 End: 05-28-2024 Cigarettes smoked current (pack per day) - Reported 5 [facility] Start: 03-11-2018 Tobacco use and exposure User of smokeless tobacco [facility] Start: 11-12-2020 End: 03-11-2021 Alcohol intake Current drinker of alcohol (finding) [facility] Start: 12-13-2019 History SDOH Alcohol Frequency 3 [facility] Start: 12-13-2019 History SDOH Alcohol Std Drinks 98 [facility] Start: 03-11-2018 History SDOH Alcohol Comment social [facility] Start: 12-13-2019 History SDOH Social Connections Phone 5 [facility] Start: 12-13-2019 History SDOH Social Connections Membership 2 [facility] Start: 12-13-2019 History SDOH Social Connections Meetings 1 [facility] Start: 12-13-2019 History SDOH Stress 4 [facility] Start: 12-13-2019 Education 14 [facility] Start: 03-11-2018 Tobacco Comment smokes 5 cig a day [facility] Start: 12-13-2019 End: 05-28-2024 Social connection and isolation panel [facility] Do you belong to any clubs or organizations such as denominational groups, unions, fraternal or athletic groups, or school groups? No [facility] Are you now , , , , never or living with a partner? [facility] How often to you hav e a drink containing alcohol? 2-4 times a month [facility] How many standard dr inks containing alcohol do you have on a typical day? Patient refused [facility] How often do you hav e 6 or more drinks on 1 occasion? Monthly [facility] How hard is it for y ou to pay for the very basics like food, housing, medical care, and heating Somewhat hard [facility] Work Phone: Do you feel stress - tense, restless, nervous, or anxious, or unable to sleep at night because your mind is troubled all the time - these days [OSQ] Rather much [facility] (I/We) worried wheth er (my/our) food would run out before (I/we) got money to buy more. Often true [facility] Work Phone: In the past 12 month s, was there a time when you were not able to pay the mortgage or rent on time? Yes [facility] Start: 01-11-2019 Gender identity Identifies as female gender (finding) [facility] Start: 01-11-2019 Sexual orientation Heterosexual (finding) [facility] Start: 10-13-2020 End: 11-12-2020 Exposure to SARS-CoV-2 (event) Not sure [facility] How often do you hav e 6 or more drinks on 1 occasion? Monthly [facility] Start: 1965 Sex Assigned At Not on file [facility] Start: 03-21-2024 Tobacco use and exposure Smokeless tobacco non-user [facility] Are you now , , , , never or living with a partner? Living with partner [facility] How often to you hav e a drink containing alcohol? Monthly or less [facility] How many standard dr inks containing alcohol do you have on a typical day? 1 or 2 [facility] How often do you hav e 6 or more drinks on 1 occasion? Never [facility] (I/We) worried wheth er (my/our) food would run out before (I/we) got money to buy more. Sometimes true [facility] Goals Date Patient Goal Desired Activity /State Clinical Notes 01-08-2022 to 08-28-2024 Boo Bey MD - 08/28/2024 9:05 AM Jenny Bey MD - 08/28/2024 9:05 AM Jenny Bey MD - 08/28/2024 9:04 AM Jenny Bey MD - 08/28/2024 9:04 AM EDT Note Date & Type Note Facility 08-28-2024 History of Present illness Narrative Associated Problem(s): Type 2 diabetes mellitus with hyperglycemia, without long-term current use of insulin ([facility]) Reports BS improved and due for A1C. Stick to ADA diet and limit carbs. Associated Problem(s): Hypertension, essential ([facility]) BP controlled and monitor PRN. Associated Problem(s): Class 2 severe obesity due to excess calories with serious comorbidity and body mass index (BMI) of 38.0 to 38.9 in adult ([facility]) Weight loss indicated. Associated Problem(s): Chronic pain of right ankle Pain stable and use ultram PRN. Increase activity and walk regularly. Associated Problem(s): Bilateral primary osteoarthritis of knee Pain stable and use ultram PRN. Increase activity and walk regularly. Images from the original note were not included. Subjective Patient ID: Queen Robinson Gibson is a 59 y.o. female who presents for Follow-up (3m f/up/Right side pain). Follow up DM, HTN, OA knee, and ankle pain. BS stable and typically around 120-130 but 184 this am. Tries to eat well and stick to ADA diet. Denies signs of elevated BS such as polyuria, polyphagia or polydipsia. Due for A1C. Checking BP PRN and typically controlled. BP elevated today but c/o pain. Taking medication daily and tolerating without side effects. Pain unchanged. Increased pain in knees and left ankle. Frequent popping, clicking, and grinding. Pain with walking and standing. Using ultram PRN and helps. Review of Systems Respiratory: Negative for cough, [...] List Items Addressed This Visit Hypertension, essential ([facility]) BP controlled and monitor PRN. Class 2 severe obesity due to excess calories with serious comorbidity and body mass index (BMI) of 38.0 to 38.9 in adult (CMS/HCC) Weight loss indicated. Type 2 diabetes mellitus with hyperglycemia, without long-term current use of insulin ([facility]) - Primary Reports BS improved and due for A1C. Stick to ADA diet and limit carbs. Relevant Orders Hemoglobin A1c Chronic pain of right ankle Pain stable and use ultram PRN. Increase activity and walk regularly. Relevant Medications traMADol (Ultram) 50 MG tablet cyclobenzaprine (Flexeril) 10 MG tablet Bilateral primary osteoarthritis of knee Pain stable and use ultram PRN. Increase activity and walk regularly. Possible exposure to STD Relevant Orders HIV 1/2 antibodies, rapid Hepatitis panel, acute RPR documented in this encounter [facility] 06-08-2024 History of Present illness Narrative Associated Problem(s): Class 3 severe obesity due to excess calories with serious comorbidity and body mass index (BMI) of 40.0 to 44.9 in adult ([facility]) Weight loss indicated. Associated Problem(s): Acute bronchitis due to other specified organisms Take antibiotics for 7 days. Use prednisone for inflammation. Use sudafed or other decongestants as needed. Use Robitussin or Robitussin-DM for cough. Can use afrin for congestion but no longer than 3 days. Can use Mucinex to bring up phlegm. Use Motrin or Tylenol as needed for fever, aches, or pains. Increase fluid intake and rest. Off work 06/08-06/18 and return 06/19. Images from the original note were not included. Subjective Patient ID: Queen Robinson Gibson is a 59 y.o. female who presents for No chief complaint on file.. C/o cough, congestion, and rhinorrhea x 1 week. Afebrile. Severe fatigue and no energy. Frequent cough productive green sputum. Chest tight and SOB. ANDERS and sinus pressure in forehead and cheeks along with postnasal drip. Ears plugged and popping. Sore throat and pain to swallow. Mild nausea. Multiple coworkers recently sick. Using OTC medication and mild relief. No improvement in symptoms since onset. Review of Systems Respiratory: Negative for cough, [...] Assessment/Plan Problem List Items Addressed This Visit Class 3 severe obesity due to excess calories with serious comorbidity and body mass index (BMI) of 40.0 to 44.9 in adult ([facility]) Weight loss indicated. Acute bronchitis due to other specified organisms - Primary Take antibiotics for 7 days. Use prednisone for inflammation. Use sudafed or other decongestants as needed. Use Robitussin or Robitussin-DM for cough. Can use afrin for congestion but no longer than 3 days. Can use Mucinex to bring up phlegm. Use Motrin or Tylenol as needed for fever, aches, or pains. Increase fluid intake and rest. Should improve over next 5-7 days and if no better or worse call for re-evaluation. Relevant Medications levoFLOXacin (Levaquin) 750 MG tablet predniSONE (Deltasone) 50 MG tablet albuterol HFA 90 mcg/act inhaler documented in this encounter [facility] 05-29-2024 History of Present illness Narrative Associated Problem(s): Viral gastroenteritis Symptoms due to virus and may take up to 10-14 days to resolve. Use bentyl PRN. Increase clear liquids. Give small sips of water, pedialyte or gatorade. If excess vomiting, nothing oral x 4-5 hours then start small amounts or sips of liquids every 15 minutes. Common to have diarrhea with this illness. No solids x 24 hours then gradually advance diet starting with crackers, toast, bananas, applesauce. Warned signs of dehydration such as dry mouth or decreased urine output. Wash hands frequently to prevent spread. Associated Problem(s): Type 2 diabetes mellitus with hyperglycemia, without long-term current use of insulin (CMS/HCC) BS elevated and attempt to prior auth ozempic. Stick to ADA diet and limit carbs. Associated Problem(s): Hypertension, essential (CMS/HCC) BP controlled and monitor PRN. Associated Problem(s): Chronic pain of right ankle Pain stable and use ultram PRN. Increase activity and walk regularly. Associated Problem(s): Bilateral primary osteoarthritis of knee Pain stable and use ultram PRN. Increase activity and walk regularly. Images from the original note were not included. Subjective Patient ID: Queen Robinson Gibson is a 59 y.o. female who presents for Follow-up (2m/Stomach bug) and Shoulder Pain. Follow up DM, HTN, OA knee, and ankle pain. BS elevated and not able to get ozempic. BS around 150 and recent A1C 7.5. Tries to eat well and stick to ADA diet. Denies signs of elevated BS such as polyuria, polyphagia or polydipsia. Checking BP PRN and typically controlled. BP elevated today. Taking medication daily and tolerating without side effects. Pain unchanged. Increased pain in knees and left ankle. Frequent popping, clicking, and grinding. Pain with walking and standing. Using ultram PRN and helps. C/o nausea and diarrhea for 1 week. Frequent abdominal pain and cramping. Frequent watery stool 5-10 times a day. Trying to increase fluids. No blood with BM. Several family members with similar symptoms. Review of Systems Respiratory: Negative for cough, [...] List Items Addressed This Visit Hypertension, essential ([facility]) BP controlled and monitor PRN. Type 2 diabetes mellitus with hyperglycemia, without long-term current use of insulin (CMS/HCC) - Primary BS elevated and attempt to prior auth ozempic. Stick to ADA diet and limit carbs. Relevant Medications semaglutide (Ozempic, 1 MG/DOSE,) 4 MG/3ML solution pen-injector Chronic pain of right ankle Pain stable and use ultram PRN. Increase activity and walk regularly. Bilateral primary osteoarthritis of knee Pain stable and use ultram PRN. Increase activity and walk regularly. Viral gastroenteritis Symptoms due to virus and may take up to 10-14 days to resolve. Use bentyl PRN. Increase clear liquids. Give small sips of water, pedialyte or gatorade. If excess vomiting, nothing oral x 4-5 hours then start small amounts or sips of liquids every 15 minutes. Common to have diarrhea with this illness. No solids x 24 hours then gradually advance diet starting with crackers, toast, bananas, applesauce. Warned signs of dehydration such as dry mouth or decreased urine output. Wash hands frequently to prevent spread. Relevant Medications dicyclomine (Bentyl) 20 MG tablet documented in this encounter [facility] 04-05-2024 Telephone encounter Note Patient said you gave her a prescription for a blood pressure cuff and the prescriptions listed on here, but [facility] has not gotten anything from you. JN [facility] 04-05-2024 Miscellaneous Notes Patient said you gave her a prescription for a blood pressure cuff and the prescriptions listed on here, but [facility] has not gotten anything from you. JN documented in this encounter [facility] 03-21-2024 History of Present illness Narrative Associated Problem(s): Type 2 diabetes mellitus with hyperglycemia, without long-term current use of insulin ([facility]) Reports BS controlled and due for A1C. Stick to ADA diet and limit carbs. Associated Problem(s): Hypertension, essential ([facility]) BP elevated and need to monitor PRN. Take lisinopril daily. Discussed DASH diet. Associated Problem(s): Class 3 severe obesity due to excess calories with serious comorbidity and body mass index (BMI) of 40.0 to 44.9 in adult ([facility]) Weight unchanged and increase ozempic. Associated Problem(s): [...] List Items Addressed This Visit Hypertension, essential ([facility]) BP elevated and need to monitor PRN. Take lisinopril daily. Discussed DASH diet. Dyslipidemia ([facility]) Class 3 severe obesity due to excess calories with serious comorbidity and body mass index (BMI) of 40.0 to 44.9 in adult ([facility]) Weight unchanged and increase ozempic. Type 2 diabetes mellitus with hyperglycemia, without long-term current use of insulin ([facility]) - Primary Reports BS controlled and due [...] Bilateral screening mammogram documented in this encounter [facility] 02-10-2023 Note Patient Outreach (IN [facility]) QUEEN Tyrese GIBSON ([id number]) 1965 F FNS Date Time Provider Department 02/10/23 [facility] During your visit today, we recorded the following information about you: Allergies As of Date: 02/10/2023 (No Known Allergies) Date Reviewed: 03/11/2021 Reviewed by: Nadege Cordoba APRN.STAFF ACCOUNTANT - Fully Assessed Visit Diagnosis:Encounter for screening mammogram for breast cancer [Z12.31] Order(s):[facility] SCREENING [[id number]] Order #: [id number] FUTURE Prescriptions as of 02/15/2023 - Surgical [...] [K76.0] 12/11/2020 Positive colorectal cancer screening using [place]*01/09/2021 Encounter Status:Closed by BEATRICE LYNNE on 02/15/23 [facility] 03-04-2022 Note Patient Outreach (IN [facility]) QUEEN Tyrese GIBSON ([id number]) 1965 F FNS Date Time Provider Department 03/04/22 [facility] During your visit today, we recorded the following information about you: Allergies As of Date: 03/04/2022 (No Known Allergies) Date Reviewed: 03/11/2021 Reviewed by: Nadege Cordoba APRN.STAFF ACCOUNTANT - Fully Assessed Visit Diagnosis:Encounter for screening mammogram for breast cancer [Z12.31] Order(s):[facility] SCREEN[facility] [[id number]] Order #: [id number] FUTURE Prescriptions as of 03/09/2022 - Surgical [...] [K76.0] 12/11/2020 Positive colorectal cancer screening using [place]*01/09/2021 Encounter Status:Closed by NAIMA LYNNEUSEKishore on 03/09/22 [facility] 01-08-2022 Miscellaneous Notes Patient presented to the [facility] ED on 01/07/2022 for complaints of sprain [...] follow-up with: PCP documented in this encounter [facility] Evaluation note Diagnosis Encounter for screening [facility] for [facility] Diagnosis Left lower quadrant abdominal mass Abdominal or pelvic swelling, mass, or lump, left lower quadrant [facility] Diagnosis Left hip pain Pain in joint, pelvic region and thigh [facility] Diagnosis Encounter for screening [facility]ogram for breast [facility] Diagnosis Arthritis of ankle- Primary documented in this encounter [facility]* Diagnosis Chronic pain of right ankle- Primary documented in this encounter [facility]* Diagnosis Type 2 diabetes mellitus with hyperglycemia, without long-term current use of insulin (CMS/HCC)- Primary Hypertension, essential (CMS/HCC) Unspecified essential hypertension Bilateral primary osteoarthritis of knee Chronic pain of right ankle Dyslipidemia (CMS/HCC) Other and unspecified hyperlipidemia Class 3 severe obesity due to excess calories with serious comorbidity and body mass index (BMI) of 40.0 to 44.9 in adult (CMS/[facility]) Breast cancer screening by mammogram Annual physical exam Routine general medical examination at a health care facility Type 2 diabetes mellitus with other specified complication (CMS/HCC) documented in this encounter [facility]* Diagnosis Type 2 diabetes [...] diabetes mellitus with other specified complication (CMS/HCC) Type 2 diabetes mellitus with hyperglycemia, without long-term current use of insulin (CMS/HCC) Benign hypertension (CMS/HCC) Essential hypertension, benign documented in this encounter [facility]* Diagnosis Type 2 diabetes mellitus with hyperglycemia, without long-term current use of insulin (CMS/HCC)- Primary Hypertension, essential (CMS/HCC) Unspecified essential hypertension Bilateral primary osteoarthritis of knee Chronic pain of right ankle Dyslipidemia (CMS/HCC) Other and unspecified hyperlipidemia Class 3 severe obesity due to excess calories with serious comorbidity and body mass index (BMI) of 40.0 to 44.9 in adult ([facility] Breast cancer screening by mammogram Annual physical exam Routine general medical examination at [facility] Type 2 diabetes mellitus with other specified complication ([facility]) Chronic pain of right ankle documented in this encounter [facility]* Diagnosis Type 2 diabetes mellitus with hyperglycemia, without long-term current use of insulin [place] Primary Hypertension, essential ([facility]) Unspecified essential hypertension Bilateral primary osteoarthritis of knee Chronic pain of right ankle Dyslipidemia ([facility]) Other and unspecified hyperlipidemia Class 3 severe obesity due to excess calories with serious comorbidity and body mass index (BMI) of 40.0 to 44.9 in adult ([facility] Breast cancer screening by mammogram Annual physical exam Routine general medical examination at a [facility] Type 2 diabetes mellitus with other specified complication ([facility]) Type 2 diabetes mellitus with hyperglycemia, without long-term current use of insulin ([facility] Primary Hypertension, essential ([facility]) Unspecified essential hypertension Viral gastroenteritis Intestinal infection due to other organism, NEC Bilateral primary osteoarthritis of knee Chronic pain of right ankle documented in this encounter [facility]* Diagnosis Type 2 diabetes mellitus with hyperglycemia, without long-term current use of insulin ([facility] Primary Hypertension, essential ([facility]) Unspecified essential hypertension Bilateral primary osteoarthritis of knee Chronic pain of right ankle Dyslipidemia ([facility]) Other and unspecified hyperlipidemia Class 3 severe obesity due to excess calories with serious comorbidity and body mass index (BMI) of 40.0 to 44.9 in adult ([facility] Breast cancer screening by mammogram Annual physical exam Routine general medical examination at [facility] Type 2 diabetes mellitus with other specified complication ([facility]) Type 2 diabetes mellitus with hyperglycemia, without long-term current use of insulin ([facility] Primary Hypertension, essential ([facility]) Unspecified essential hypertension Viral gastroenteritis Intestinal infection due to other organism, NEC Bilateral primary osteoarthritis of knee Chronic pain of right ankle Acute bronchitis due to other specified organisms- Primary Class 3 severe obesity due to excess calories with serious comorbidity and body mass index (BMI) of 40.0 to 44.9 in adult ([facility] [facility] Diagnosis Type 2 diabetes mellitus with hyperglycemia, without long-term current use of insulin (CMS/HCC)- Primary Hypertension, essential (CMS/HCC) Unspecified essential hypertension Bilateral primary osteoarthritis of knee Chronic pain of right ankle Dyslipidemia (CMS/HCC) Other and unspecified hyperlipidemia Class 3 severe obesity due to excess calories with serious comorbidity and body mass index (BMI) of 40.0 to 44.9 in adult Breast cancer screening by mammogram Annual physical exam Routine general medical examination at a health care facility Type 2 diabetes mellitus with other specified complication Type 2 diabetes mellitus with hyperglycemia, without long-term current use of insulin (CMS/HCC)- Primary Hypertension, essential (CMS/HCC) Unspecified essential hypertension Viral gastroenteritis Intestinal infection due to other organism, NEC Bilateral primary osteoarthritis of knee Chronic pain of right ankle Acute bronchitis due to other specified organisms- Primary Class 3 severe obesity due to excess calories with serious comorbidity and body mass index (BMI) of 40.0 to 44.9 in adult Type 2 diabetes mellitus with hyperglycemia, without long-term current use of insulin (CMS/HCC)- Primary Hypertension, essential (CMS/HCC) Unspecified essential hypertension Bilateral primary osteoarthritis of knee Chronic pain of right ankle Class 2 severe obesity due to excess calories with serious comorbidity and body mass index (BMI) of 38.0 to 38.9 in adult (CMS/HCC) Possible exposure to STD Type 2 diabetes mellitus with other specified complication Hyperlipidemia, unspecified (CMS/HCC) [facility] Diagnostic Procedure Only (Routine) - Pending Review Specialty Diagnoses / Procedures Referred By Mary franklin Referred To Contact [facility] Diagnoses Encounter for screening mammogram for breast cancer Procedures [facility] SCREENING SCREENING MAMMOGRAPHY BI 2-VIEW BREAST INC CAD Shi Trinidad MD [address] [place] [address] Br [facility] [place] [address] Referral ID Status Reason Start Date Expiration Date Visits Requested Visits Authorized [id number] Pending Review Auto-Generat ed Referral 03/04/2022 04/03/2023 1 1 [facility] for referral (narrative)* Diagnostic Procedure Only (Routine) - Closed Specialty Diagnoses / Procedures Referred By Contac t Referred To Contact CT IMAGING Diagnoses Left lower quadrant abdominal mass R19.04 (ICD-10-CM) - Left lower quadrant abdominal mass Procedures CT ABD/PEL W IVCON CT ABD & PELVIS W/CONTRAST CT ABD/PEL W Aviva Segura, WIL.STAFF ACCOUNTANT [address] [place] [address] Ct Imaging Referral ID Status Reason Start Date Expiration Date V isits Requested Visits Authorized [id number] Closed Auto-Generate d Referral 11/21/2020 12/20/2020 2 2 [facility] for referral (narrative)* Diagnostic Procedure Only (Routine) - Pending Review Specialty Diagnoses / Procedures Referred By Mary t Referred To Contact [facility] Diagnoses Encounter for screening mammogram for breast cancer Procedures [facility] SCREENING SCREENING MAMMOGRAPHY BI 2-VIEW BREAST INC CAD Shi Trinidad MD [address] [place] [address] Br Imaging [address] [place] [address] Referral ID Status Reason Start Date Expiration Date Visits Requested Visits Authorized [id number] Pending Review Auto-Generat ed Referral 02/10/2023 03/11/2024 1 1 [facility] for visit Narrative* Diagnostic Procedure Only (Routine) - Closed Specialty Diagnoses / Procedures Referred By Contac t Referred To Contact CT IMAGING Diagnoses Left lower quadrant abdominal mass R19.04 (ICD-10-CM) - Left lower quadrant abdominal mass Procedures CT ABD/PEL W IVCON CT ABD & PELVIS W/CONTRAST CT ABD/PEL W Aviva Segura, NATURAL GAS INSPECTOR.STAFF ACCOUNTANT [address] [place] [address] Ct Imaging Referral ID Status Reason Start Date Expiration Date V isits Requested Visits Authorized [id number] Closed Auto-Generate d Referral 11/21/2020 12/20/2020 2 2 [facility] Summary Purpose Family History No Family [...] Procedure: L medial menisectomy Surgeon: bettina Resident/Fellow/Other Residence Hall Director: markel Estimated Blood Loss (mL): 50 Specimen: [...] section and content) DATE CREATED AUTHOR 09/19/2018 [facility] DATE CREATED AUTHOR AUTHOR'S ORGANIZ ATION 12/18/2018 [facility] DATE CREATED AUTHOR AUTHOR'S ORGANIZ ATION 04/01/2021 [facility] DATE CREATED AUTHOR AUTHOR'S ORGANIZ ATION 11/06/2022 [facility] DATE CREATED AUTHOR AUTHOR'S ORGANIZ ATION 02/15/2023 [facility] DATE CREATED AUTHOR AUTHOR'S ORGANIZ ATION 08/28/2024 [facility] EPIC Source Comments (unrecognize d section and content) In the event this informatio n is protected by the Federal Confidentiality of Alcohol and Drug Abuse Patient Records regulations: The Federal rules restrict any use of the information to criminally investigate or prosecute any alcohol or drug abuse patient.[facility] the event this information is protected by the Federal Confidentiality of Alcohol and Drug Abuse Patient Records regulations: The Federal rules restrict any use of the information to criminally investigate or prosecute any alcohol or drug abuse patient.[facility] Hospital[facility] the event this information is protected by the Federal Confidentiality of Alcohol and Drug Abuse Patient Records regulations: The Federal rules restrict any use of the information to criminally investigate or prosecute any alcohol or drug abuse patient.[facility] HospitalIn the event this information is protected by the Federal Confidentiality of Alcohol and Drug Abuse Patient Records regulations: The Federal rules restrict any use of the information to criminally investigate or prosecute any alcohol or drug abuse patient.[facility] HospitalIn the event this information is protected by the Federal Confidentiality of Alcohol and Drug Abuse Patient Records regulations: The Federal rules restrict any use of the information to criminally investigate or prosecute any alcohol or drug abuse patient.[facility] HospitalIn the event this information is protected by the Federal Confidentiality of Alcohol and Drug Abuse Patient Records regulations: The Federal rules restrict any use of the information to criminally investigate or prosecute any alcohol or drug abuse patient.[facility] Reason for Visit (unrecogniz ed section and content) Reason Comments ER F/U Reason Onset Date Comments Med Refill 07/07/2023 Reason Comments Nausea And sleepy Reason Onset Date Comments Med Refill 04/05/2024 Reason Comments Med Refill Reason Comments Follow-up 2mStomach bug Shoulder Pain Reason Comments Follow-up 3m f/upRight side pa in Care Teams (unrecognized sec tion and content) Floor Polisher Relationship Specialty Start Date End Date Shi Trinidad MD [address] [place] [address] PCP - General Family Practice 01/13/21 Floor Polisher Relationship Specialty Start Date End Date Shi Trinidad MD [address] [place] [address] PCP - General Family Medicine 01/13/21 Floor Polisher Relationship Specialty Start Date End Date Melinda Gann PA-C [address] [place] [address] PCP - General Internal Medicine 11/12/20 01/12/21 Floor Polisher Relationship Specialty Start Date End Date Melinda Gann PA-C [address] [facility] [place] [address] PCP - General Internal Medicine 11/12/20 01/12/21 Floor Polisher Relationship Specialty Start Date End Date Melinda Gann PA-C [address] [facility] [place] [address] PCP - General Internal Medicine 11/12/20 01/12/21 Floor Polisher Relationship Specialty Start Date End Date Shi Trinidad MD [address] [facility] [place] [address] PCP - General Family Medicine 01/13/21 Floor Polisher Relationship Specialty Start Date End Date Boo Bey MD [address] [place] [address] PCP - General Family Medicine 06/21/23 Floor Polisher Relationship Specialty Start Date End Date Boo Bey MD [address] [place] [address] PCP - General Family Medicine 06/21/23 Floor Polisher Relationship Specialty Start Date End Date Boo Bey MD [address] [place] [address] PCP - General Family Medicine 06/21/23 Floor Polisher Relationship Specialty Start Date End Date Boo Bey MD [address] [place] [address] PCP - General Family Medicine 06/21/23 Floor Polisher Relationship Specialty Start Date End Date Boo Bey MD [address] [place] [address] PCP - General Family Medicine 06/21/23 Floor Polisher Relationship Specialty Start Date End Date Boo Bey MD [address] [place] [address] PCP - General Family Medicine 06/21/23 Floor Polisher Relationship Specialty Start Date End Date Boo Bey MD [address] [place] [address] PCP - General Family Medicine 06/21/23 Floor Polisher Relationship Specialty Start Date End Date Boo Bey MD [address] [place] [address] PCP - General Family Medicine 06/21/23 Floor Polisher Relationship Specialty Start Date End Date Boo Bey MD [address] [place] [address] PCP - General Family Medicine 06/21/23 Floor Polisher Relationship Specialty Start Date End Date Boo Bey MD [address] [place] [address] PCP - General Family Medicine 06/21/23 Floor Polisher Relationship Specialty Start Date End Date Boo Bey MD [address] [place] [address] PCP - General Family Medicine 06/21/23 Floor Polisher Relationship Specialty Start Date End Date Boo Bey MD [address] [place] [address] PCP - General Family Medicine 06/21/23 Boo Bey MD [address] [place] [address] PCP - [place] [employer] 05/31/24 Floor Polisher Relationship Specialty Start Date End Date Boo Bey MD [address] [place] [address] PCP - General Family Medicine 06/21/23 Boo Bey MD [address] [place] [address] PCP - [place] [employer] 05/31/24 FOR RECORDS PERTAINING TO PATIENTS WHO ARE [...] BE BASED ON THE PRIMARY CLINICAL RECORDS. [facility]. provides no warranty or guarantee of the accuracy or completeness of information in this document.
[2024-08-29 08:39] LABS: Estimated Average Glucose 203 mg/dL; Glycohemoglobin A1C 8.7 % (4.5-6.2)
[2024-08-30 05:07] LABS: HBsAg Screen Negative (Negative); HCV Ab Non Reactive (Non Reactive); HIV Ab/p24 Ag Screen Non Reactive (Non Reactive); Hep A Ab, IgM Negative (Negative); Hep B Core Ab, IgM Negative (Negative)
[2024-08-30 11:08] LABS: Rapid Plasma Reagin, Quant Non Reactive titer (NonRea<1:1)
== END 2024-08-29 07:58 | disposition home or self-care (01) ==
LOC: LAB 08:00
PROVIDERS: PCP Family Medicine; Visit Provider Family Medicine
DX: E11.65 Type 2 diabetes mellitus with hyperglycemia (principal); Z20.2 Contact with and (suspected) exposure to infections with a predominantly sexual mode of transmission
CPT/HCPCS: 36415; 80074; 83036; 86592; 87389

== ENCOUNTER 2024-11-29 09:10 | Outpatient (OUT) | payer BC, SELFPAY ==
--- OUTSIDE RECORDS SUMMARY | 2024-11-29 08:15 | XMS_ITS | Encounter Summary ---
Author Organization [facility] Address [address] [place] [address] Care Team Providers Care Utility Lineman Name Role Phone Boo Davies MD Primary Care Provider [phone] Boo Davies MD Unavailable Reason for Visit * Reason Comments Follow-up 3M Encounter Details Date Type Department Care Team (Late st Contact Info) Description 11/29/2024 8:15 AM EDT Office Visit [facility] [address] [place] [address] Boo Davies MD [address] [place] [address] Type 2 diabetes mellitus with hyperglycemia, without long-term current use of insulin (HCC) (Primary Dx); Hypertension, essential ; Bilateral primary osteoarthritis of knee; Chronic pain of right ankle; Class 2 severe obesity due to excess calories with serious comorbidity and body mass index (BMI) of 38.0 to 38.9 in adult ([facility]) Social History Tobacco Use Types Packs/Day Years Used Date Smoking Tobacco: Every Day Cigarettes 0.5 10 Smokeless Tobacco: Never [id number] Health Literacy Answer Date Recor ded How often do you need to hav e someone help you when you read instructions, pamphlets, or other written material from your doctor or pharmacy? Never 05/28/2024 Social Connection and Isolat ion Panel [NHANES] Answer Date Recorded In a typical week, how many times do you talk on the phone with family, friends, or neighbors? More than three times a week 05/28/2024 How often do you get togethe r with friends or relatives? More than three times a week 05/28/2024 How often do you attend chur ch or islam services? More than 4 times per year 05/28/2024 Do you belong to any clubs o r organizations such as yazidism groups, unions, fraternal or athletic groups, or school groups? Yes 05/28/2024 How often do you attend meet ings of the clubs or organizations you belong to? More than 4 times per year 05/28/2024 Are you , , di vorced, , never , or living with a partner? Living with partner 05/28/2024 AUDIT-C Answer Date Recorded Q1: How often do you have a drink containing alc ohol? Monthly or less 05/28/2024 Q2: How many drinks containi ng alcohol do you have on a typical day when you are drinking? 1 or 2 05/28/2024 Q3: How often do you have si x or more drinks on one occasion? Never 05/28/2024 Overall Financial Resource Strain (CARDIA) Answe r Date Recorded How hard is it for you to pa y for the very basics like food, housing, medical care, and heating? Somewhat hard 05/28/2024 [facility] - Occupational Stress Questionnaire Answer Date Recorded Do you feel stress - tense, restless, nervous, or anxious, or unable to sleep at night because your mind is troubled all the time - these days? Rather much 05/28/2024 Exercise Vital Sign Answer Date Recorde d On average, how many days pe r week do you engage in moderate to strenuous exercise (like a brisk walk)? 2 days 05/28/2024 On average, how many minutes do you engage in exercise at this level? 20 min 05/28/2024 Hunger Vital Sign Answer Date Recorded Within the past 12 months, y ou worried that your food would run out before you got the money to buy more. Sometimes true Within the past 12 months, t he food you bought just didn't last and you didn't have money to get more. Sometimes true PRAPARE - Transportation Answer Date Re corded In the past 12 months, has l ack of transportation kept you from medical appointments or from getting medications? No 05/01 In the past 12 months, has l ack of transportation kept you from meetings, work, or from getting things needed for daily living? No 05/28/2024 Housing Stability Vital Sign Answer Rudy e Recorded In the last 12 months, was t here a time when you were not able to pay the mortgage or rent on time? No 05/28/2024 In the past 12 months, how m any times have you moved where you were living? 0 05/28/2024 At any time in the past 12 m [facility], were you homeless or living in a correction (including now)? No 05/28/2024 Comments Unknown Sex and Gender Information Value Date Recorded Sex Assigned at Not on file Legal Sex Female 6:35 PM EDT Gender Identity Not on file Sexual Orientation Not on file documented as of this encounter Last Filed Vital Signs Vital Sign Reading Time Taken Comments Blood Pressure 128/72 11/29/2024 8:21 AM EDT Pulse 88 11/29/2024 8:21 AM EDT Temperature 36.2 C (97.1 F) 11/29/2024 8:21 AM EDT Respiratory Rate 22 11/29/2024 8:21 AM EDT Oxygen Saturation 99% 11/29/2024 8:21 AM EDT Inhaled Oxygen Concentration - - Weight 102 kg (224 lb) 11/29/2024 8:21 AM EDT Height 162.6 cm (5' 4 ) 11/29/2024 8:21 AM EDT Body Mass Index 38.45 11/29/2024 8:21 AM EDT documented in this encounter Progress Notes * Boo Davies MD - 11/29/2024 8:57 AM EDTAssociated Problem(s): Type 2 diabetes mellitus with hyperglycemia, without long-term current use of insulin (HCC) Reports BS improved and due for A1C. Increase ozempic to help weight loss and decrease glipizide toonce a day. Stick to ADA diet and limit carbs. * Boo Davies MD - 11/29/2024 8:57 AM EDTAssociated Problem(s): Hypertension, essential BP controlled and monitor PRN. * Boo Davies MD - 11/29/2024 8:57 AM EDTAssociated Problem(s): Class 2 severe obesity due to excess calories with serious comorbidity and body mass index (BMI) of 38.0 to 38.9 in adult ([facility]) Weight loss indicated. * Boo Davies MD - 11/29/2024 8:57 AM EDTAssociated Problem(s): Chronic pain of right ankle Pain stable and use ultram PRN. Increase activity and walk regularly. * Boo Davies MD - 11/29/2024 8:56 AM EDTAssociated Problem(s): Bilateral primary osteoarthritis of knee Pain stable and use ultram PRN. Increase activity and walk regularly. * Boo Davies MD - 11/29/2024 8:15 AM EDT Images from the original note were not included. Subjective Patient ID: Queen Paulette Gibson is a 59 y.o. female who presents for Follow- up (3M). Follow up DM, HTN, OA knee, and ankle pain. BS stable today. Reports BS typically controlled [id number]. Tries to eat well and stick to ADA diet. Denies signs of elevated BS such as polyuria, polyphagia or polydipsia. Due for A1C. Checking BP PRN and typically controlled. BP normal today. Taking medication daily and tolerating without side effects. Pain improved. Mild pain in knees and left ankle. Frequent popping, clicking, and grinding. Pain with walking and standing. Using ultram PRN andhelps. Review of Systems Respiratory: Negative for cough, [...] List Items Addressed This Visit Hypertension, essential BP controlled and monitor PRN. Class 2 severe obesity due to excess calories with serious comorbidity and body mass index (BMI) of38.0 to 38.9 in adult ([facility]) Weight loss indicated. Type 2 diabetes mellitus with hyperglycemia, without long-term current use of insulin ([facility]) - Primary Reports BS improved and due for A1C. Increase ozempic to help weight loss and decrease glipizide toonce a day. Stick to ADA diet and limit carbs. Relevant Medications glipiZIDE (Glucotrol) 10 MG tablet Semaglutide, 2 MG/DOSE, (Ozempic, 2 MG/DOSE,) 8 MG/3ML solution pen-injector Other Relevant Orders Hemoglobin A1c Chronic pain of right ankle Pain stable and use ultram PRN. Increase activity and walk regularly. Bilateral primary osteoarthritis of knee Pain stable and use ultram PRN. Increase activity and walk regularly. documented in this encounter Plan of Treatment Upcoming Encounters Date Type Department Care Team (Late st Contact Info) Description 03/05/2025 8:00 AM EDT Office Visit [facility] [address] [place] [address] Boo Davies MD [address] [place] [address] Scheduled Orders Name Type Priority Associated Diagnoses Orde r Schedule Hemoglobin A1c Lab Routine Type 2 diabetes mellitus with hyperglycemia, without long-term current use of insulin (HCC) Expected: 11/29/2024 (Approximate), Expires: 11/29/2025 documented as of this encounter Visit Diagnoses Diagnosis Type 2 diabetes mellitus with hyperglycemia, without long-term current use of insulin (HCC)- Primary Hypertension, essential Unspecified essential hypertension Bilateral primary osteoarthritis of knee Chronic pain of right ankle Class 2 severe obesity due to excess calories with serious comorbidity and body mass index (BMI) of 38.0 to 38.9 in adult ([facility]) documented in this encounter Care Teams Utility Lineman Relationship Specialty Start Date End Date Boo Davies MD [address] [place] [address] PCP - General Family Medicine 06/21/23 Boo Davies MD [address] [place] [address] PCP - [place] [employer] 05/31/24 documented as of this encounter
--- OUTSIDE RECORDS SUMMARY | 2024-11-29 09:16 | XMS_ITS | Encounter Summary ---
Author Organization [facility] Address [address] [place] [address] Care Team Providers Care Needle Polisher Name Role Phone Boo Davies MD Primary Care Provider [phone] Boo Davies MD Unavailable Encounter Details Date Type Department Care Team (Late Contact Info) Description 04/10/2024 Abstract [facility] [address] [place] [address] Boo Davies MD [address] [place] [address] Social History Tobacco Use Types Packs/Day Years Used Date Smoking Tobacco: Every Day Cigarettes 0.5 10 Smokeless Tobacco: Never Comments Unknown Sex and Gender Information Value Date Recorded Sex Assigned at Not on file Legal Sex Female 6:35 PM EDT Gender Identity Not on file Sexual Orientation Not on file documented as of this encounter Plan of Treatment Upcoming Encounters Date Type Department Care Team ([facility] Contact Info) Description 03/05/2025 8:00 AM EDT [facility] [address] [place] [address] Boo Davies MD [address] [place] [address] documented as of this encounter Visit Diagnoses Not on filedocumented in this encounter Care Teams Needle Polisher Relationship Specialty Start Date End Date Boo Davies MD [address] [place] [address] PCP - General Family Medicine 06/21/23 Boo Davies MD [address] [place] [address] PCP - [place] [employer] 05/31/24 documented as of this encounter
--- OUTSIDE RECORDS SUMMARY | 2024-11-29 09:16 | XMS_ITS | Encounter Summary ---
Author Organization [facility] Address [address] [place] [address] Care Team Providers Care Brakeshoe Repairer Name Role Phone Boo Davies MD Primary Care Provider Boo Davies MD Unavailable Encounter Details Date Type Department Care Team (Late Contact Info) Description 03/24/2024 Orders Only [facility] [address] [place] [address] Boo Davies MD [address] [place] [address] Social History Tobacco Use Types Packs/Day Years [...] Encounters Date Type Department Care Team (Late Contact Info) Description 03/05/2025 8:00 AM EDT Office Visit [facility] [address] [place] [address] Boo Davies MD [address] [place] [address] documented as of this encounter Visit Diagnoses Not on filedocumented in this encounter Care Teams Brakeshoe Repairer Relationship Specialty Start Date End Date Boo Davies MD [address] [place] [address] PCP - General Family Medicine 06/21/23 Boo Davies MD [address] [place] [address] PCP - [place] [employer] 05/31/24 documented as of this encounter
--- OUTSIDE RECORDS SUMMARY | 2024-11-29 09:16 | XMS_ITS | Encounter Summary ---
Author Organization [facility] Address [address] [place] [address] Care Team Providers Care Residential Director Name Role Phone Boo Davies MD Primary Care Provider [phone] Boo Davies MD Unavailable Encounter Details Date Type Department Care Team (Late Contact Info) Description 03/26/2024 Clinisync Result Encounter [facility] External Department Unsolicited Boo Davies MD [address] [place] [address] Social History Tobacco Use Types Packs/Day Years [...] Upcoming Encounters Date Type Department Care Team ([facility] Contact Info) Description 03/05/2025 8:00 AM EDT Office Visit [facility] [address] [place] [address] Boo Davies MD [address] [place] [address] documented as of this encounter Procedures Procedure Name Priority Date/Time Associated Diagnosis Comments MM TOMOSYNTHESIS SCREENING BI 03/26/2024 7:57 PM EDT documented in this encounter Results * MM TOMOSYNTHESIS SCREENING BI (03/26/2024 7:57 PM EDT) Anatomical Region Laterality Modality Other 03/26/2024 7:57 PM EDT Narrative 03/26/2024 7:58 [place] [address] Mammography Report Signed Patient: QUEEN Tyrese GIBSON MR#: [id number] : 1965 Acct:[id number] Age/Sex: 58 / F ADM Date: 03/24/24 Loc: LAB Attending Dr: Boo Davies M.D. Ordering Physician: Boo Davies M.D. Results: Date of Service: 03/24/24 Follow Up: Procedure(s): MM tomosynthesis screening BI Accession Number(s): [id number] cc: Boo Davies M.D. Patient Name: QUEEN JEISON MR#: [id number] : 1965 Exam Date: 03/24/2024 Ordering Doctor: DR Boo Davies . RADIOLOGY REPORT PROCEDURE: MM TOMOSYNTHESIS SCREENING BI COMPARISON: MG MAMM SCREEN 3D KADIE CAD, 10/21/2022. MG MAMM SCREEN KADIE W CAD, 06/19/2010. INDICATIONS: Screening Calculator Name NCI Breast Cancer Risk Assessment Tool 5 Year Breast Cancer Risk 1.40% Lifetime Breast Cancer Risk 7.70% Personal Breast Cancer No Personal Ovarian Cancer No Treatments None Family Cancers Grandmother-paternal with breast cancer at age 60; Father with brain cancer at age 55. LOCATION: [facility] BREAST COMPOSITION: The breasts are heterogeneously dense,which may obscure small masses. FINDINGS: DIAGNOSTIC [...] BIOPSIED. Dictated by: Long Ge M.D. on 03/26/2024 at 19:52 Approved by: Long Ge M.D. on 03/26/2024 at 19:56 Dictated By: Long Ge M.D. Signed By: 03/26/241957 DD/ 56 TD/TT: Chief Creative Officer: Procedure Note Radiology, Radiologist, MD - 03/26/2024 [place] [address] Mammography Report Signed Patient: QUEEN GIBSON WMR#: [id number] : 1965Acct:[id number] Age/Sex: 58 / FADM Date: 03/24/24 Loc: LAB Attending Dr: Boo Davies M.D. Ordering Physician: Boo Davies M.D.Results: Date of Service: 03/24/24Follow Up: Procedure(s): MM tomosynthesis screening BI Accession Number(s): [id number] cc: Boo Davies M.D. Patient Name: QUEEN JEISON MR#: [id number] : 1965 Exam Date: 03/24/2024 Ordering Doctor: DR Boo aDvies . RADIOLOGY REPORT PROCEDURE: MM TOMOSYNTHESIS SCREENING BI COMPARISON: MG MAMM SCREEN 3D KADIE CAD, 10/21/2022. MG MAMM SCREEN BILW CAD, 06/19/2010. INDICATIONS: Screening Calculator Name NCI Breast Cancer Risk Assessment Tool 5 Year Breast Cancer Risk 1.40% Lifetime Breast Cancer Risk 7.70% Personal Breast Cancer No Personal Ovarian Cancer No Treatments None Family Cancers Grandmother-paternal with breast cancer at age 60;Father with brain cancer at age 55. LOCATION: [facility] BREAST COMPOSITION: The breasts are heterogeneously dense,which may obscure small masses. FINDINGS: DIAGNOSTIC CATEGORY 1--NEGATIVE. RIGHT BREAST: No significant suspicious finding. No significant changehas occurred. LEFT BREAST: No significant suspicious finding. No significant changehas occurred. RECOMMENDATIONS: ROUTINE MAMMOGRAM AND CLINICAL EVALUATION IN 12 MONTHS. PLEASE NOTE: A NORMAL MAMMOGRAM DOES NOT EXCLUDE THE POSSIBILITY OFBREAST CANCER. A CLINICALLY SUSPICIOUS PALPABLE LUMP SHOULD BE BIOPSIED. Dictated by: Long Ge M.D. on 03/26/2024 at 19:52 Approved by: Long Ge M.D. on 03/26/2024 at 19:56 Dictated By: Long Ge M.D. Signed By:03/26/241957 DD/ 56 TD/TT: Chief Creative Officer: Boo Davies MD [facility] Final Result documented in this encounter Visit Diagnoses Not on filedocumented in this encounter Care Teams Residential Director Relationship Specialty Start Date End Date Boo Davies MD [address] [place] [address] PCP - General Family Medicine 06/21/23 Boo Davies MD [address] [place] [address] PCP - [place] [employer] 05/31/24 documented as of this encounter
--- OUTSIDE RECORDS SUMMARY | 2024-11-29 09:16 | XMS_ITS | Encounter Summary ---
Author Organization [facility] Address [address] [place] [address] Care Team Providers Care Record Librarian Name Role Phone Boo Davies MD Primary Care Provider [phone] Boo Davies MD Unavailable Encounter Details Date Type Department Care Team (Late st Contact Info) Description 11/29/2024 [facility] [address] [place] [address] Boo Davies MD [address] [place] [address] Social History Tobacco Use Types Packs/Day Years [...] week 05/28/2024 How often do you attend [facility] or jewish services? More than 4 times per year 05/28/2024 Do you belong to any clubs o r organizations such as buddhism groups, unions, fraternal or athletic groups, or [...] medical care, and heating? Somewhat hard 05/28/2024 [facility] - Occupational Stress Questionnaire Answer Date [...] any time in the past 12 m [facility], were you homeless or living in a intermediate (including now)? No 05/28/2024 Comments Unknown Sex [...] Visit [facility] [address] [place] [address] Boo Davies MD [address] [place] [address] documented as of this encounter Visit Diagnoses Not on filedocumented in this encounter Care Teams Record Librarian Relationship Specialty Start Date End Date Boo Davies MD [address] [place] [address] PCP - General Family Medicine 06/21/23 Boo Davies MD [address] [place] [address] PCP - [place] [employer] 05/31/24 documented as of this encounter
== END 2024-11-29 09:11 | disposition home or self-care (01) ==
LOC: LAB 09:14
PROVIDERS: PCP Family Medicine; Visit Provider Family Medicine
DX: E11.65 Type 2 diabetes mellitus with hyperglycemia (principal)
CPT/HCPCS: 36415; 83036